=== PATIENT | male | born 1955 | race Hispanic/Latino ===

== ENCOUNTER 2018-08-17 14:40 | Emergency (ER) | payer OTHER ==
--- OUTSIDE RECORDS SUMMARY | 2018-08-17 14:42 | XMS REPORT ---
:1955 Author Organization eClinicalWorks Care Team Providers Name Role Phone Tony Klein Provider Role Unavailable Allergies, Adverse Reactions, Alerts Substance Reaction Event Type N.K.D.A. Info Not Available Non Drug Allergy Problems Problem Type Condition Code Onset Dates Condition Status Assessment Encounter for screening for lung Z12.2 Active cancer Assessment Need for pneumococcal vaccine Z23 Active Assessment Screening for colon cancer Z12.11 Active Assessment Former heavy tobacco smoker Z87.891 Active Problem Medical history non-contributory Z78.9 Active Problem GERD without esophagitis K21.9 Active Assessment GERD without esophagitis K21.9 Active Assessment Need for influenza vaccination Z23 Active Assessment Well adult on routine health check Z00.00 Active Assessment Encounter for screening for other Z11.59 Active viral diseases Medications Medication Code Code Instructions Start End Status Dosage System Date Date Pantoprazole [facility] 17887388041 40 MG Orally Active 1 tablet Sodium Once a day Clarithromycin ND 93348632883 500 MG Orally Active 1 tablet every 12 hrs Metronidazole [facility] [address]-28 500 MG Orally Active as Twice a day directed Results No Known Results Immunizations Vaccine Administration Date PNEUMAVAX August 07, 2018 Afluria August 07, 2018 Summary Purpose eClinicalWorks Submission
[2018-08-17] MEDS ORDERED: ALBUTEROL 2.5 MG/3 ML NEB SOL ONE (15:36)
[2018-08-17] MEDS ORDERED: NA CHLORIDE 0.9% 500 ML ONE (15:36)
[2018-08-17] MEDS ORDERED: IPRATROPIUM BROM 0.5MG/2.5ML ONE (15:36)
[2018-08-17 15:44] LABS: Absolute Lymphocytes (CBC) 1.4 K/uL (0.7-4.9); Absolute Monocytes 0.7 K/uL (0.1-1.3); Absolute Neutrophil 4.5 K/uL (1.8-8.0); Basophils % 0.7 % (0-1.3); Eosinophils % 2.6 % (0-4.4); Hematocrit 43.6 % (39.6-49.0); Lymphocytes % 20.7 % (15.3-44.8); MPV 9.2 fL (7.6-11.3); Monocytes % 9.7 % (3.3-12.3); RBC Red Blood Cell Count 4.83 M/uL (4.33-5.43)
[2018-08-17 15:45] LABS: Protime INR 1.23
[2018-08-17 16:00] LABS: ALT/SGPT 15 U/L (12-78); AST/SGOT 13 U/L (15-37); Albumin 3.6 g/dL (3.4-5.0); Alkaline Phosphatase 55 U/L (45-117); BUN Blood Urea Nitrogen 16 mg/dL (7-18); Bicarbonate 29 mmol/L (21-32); Bilirubin Direct 0.1 mg/dL (0-0.2); Bilirubin Total 0.6 mg/dL (0.2-1.0); Glucose Level 88 mg/dL (74-106); Magnesium 2.3 mg/dL (1.8-2.4); NT PRO-BNP 167 pg/mL (<125); Potassium 4.5 mmol/L (3.5-5.1); Protein, Total 8.4 g/dL (6.4-8.2); Sodium Level 142 mmol/L (136-145); Troponin (Emerg Dept Use Only) < 0.02 ng/mL (0.0-0.045)
--- NOTE | 2018-08-17 16:53 | RAD REPORT ---
EXAM DESCRIPTION: RAD - Chest Pa And Lat (2 Views) - 08/17/2018 4:48 pm CLINICAL HISTORY: Cough;SOB Chest pain. COMPARISON: <Comparisons> FINDINGS: Advanced COPD is identified. The heart is normal in size. No displaced fractures. IMPRESSION: Advanced COPD
--- NOTE | 2018-08-17 16:53 | RAD REPORT ---
EXAM DESCRIPTION: CT - Soft Tissue Neck W/Contr CLINICAL HISTORY: dysphagia times 3 weeks Hoarseness, neck pain COMPARISON: No comparisons TECHNIQUE All CT scans are performed using dose optimization technique as appropriate and may includ e automated exposure control or mA/KV adjustment according to patient size. FINDINGS: Supraglottic soft tissues appears irregular and thickened, particularly posteriorly. Sever al enlarged lymph nodes are present involving both the jugulodigastric chains, level III, larger on t he left measuring up to 12-13 mm and demonstrating subtle findings of internal necrosis. The vocal cords appear symmetric. Pre-epiglottic fat is preserved however both area epiglottic folds appear irregular and thickened. Suprahyoid neck shows no evidence of intrinsic mass or mass effect. Tongue base and parapharyngeal fa t triangles are symmetric. The paranasal sinuses and mastoids are clear. The upper lung gutierrez are emphysematous. The right lobe of the thyroid gland projects inferiorly and posteriorly into the upper mediastinum. IMPRESSION: Significant irregularity and thickening of the supraglottic soft tissues with evidence o f level III lymphadenopathy particularly on the left. A head and neck malignancy is suspected and dir ect visualization is advised for followup assessment.
--- NOTE | 2018-08-17 17:23 | ER ---
Nurse's Notes [facility] Name: Hugo Nichols Age: 63 yrs Sex: Male : 1955 Arrival Date: 08/17/2018 Time: 14:45 Bed 8 Private MD: Tony Klein Diagnosis: Dysphagia;Supraglottic soft tissue thickening and lymphadenopathy;Chronic obstructive pulmonary disease, unspecified Presentation: 08/17 14:59 Presenting complaint: Patient states: About three weeks ago I started with a hoarse la1 voice and difficulty breathing, I get tired easy and I am also having trouble eating and losing some weight due to the poor diet. Pt reports being a smoker >30 years 1/ ppd and quit about 6 months. Pt has seen PCP and they ordered a scan for his chest on 08/23 but patient reports symptoms are worsening. Transition of care: patient was not received from another setting of care. Onset of symptoms was August 17, 2018. Risk Assessment: Do you want to hurt yourself or someone else? Patient reports no desire to harm self or others. Initial Sepsis Screen: Does the patient meet any 2 criteria? No. Patient's initial sepsis screen is negative. Does the patient have a suspected source of infection? No. Patient's initial sepsis screen is negative. Care prior to arrival: None. 14:59 Method Of Arrival: Ambulatory la1 14:59 Acuity: HERBIE 2 la1 Historical: - Allergies: 15:01 No Known Allergies; la1 - PMHx: 15:01 None; la1 - Immunization history:: Adult Immunizations up to date. - Social history:: Smoking status: Patient/guardian denies using tobacco, the patient reports quitting approximately 0.5 years ago. - Ebola Screening: : No symptoms or risks identified at this time. Screenin:15 Abuse screen: Denies threats or abuse. Nutritional screening: No deficits noted. aa5 Tuberculosis screening: No symptoms or risk factors identified. Fall Risk None identified. Assessment: 15:15 General: Appears comfortable, Behavior is calm, cooperative. Pain: Denies pain. Neuro: aa5 Level of Consciousness is awake, alert, obeys commands, Oriented to person, place, time, situation. Cardiovascular: Heart tones S1 S2 present Rhythm is regular. Respiratory: Reports shortness of breath Airway is patent Respiratory effort is even, unlabored, Respiratory pattern is regular, symmetrical, Breath sounds are diminished bilaterally. Denies cough. GI: Abdomen is flat, Bowel sounds present X 4 quads. Abd is soft and non tender X 4 quads. Reports "I can't eat much because my throat hurts when I swallow". : No signs and/or symptoms were reported regarding the genitourinary system. EENT: Reports sore throat/irritation to throat and hoarse voice x 3 weeks ago. . Derm: Skin is pink, warm \\T\\ dry. Musculoskeletal: Range of motion: intact in all extremities. 16:11 Reassessment: Patient and/or family updated on plan of care and expected duration. Pain hj level reassessed. Patient is alert, oriented x 3, equal unlabored respirations, skin warm/dry/pink. awaiting results and POC; Patient states symptoms have improved. 16:45 Reassessment: Pt in CT . aa5 17:08 Reassessment: Patient and/or family updated on plan of care and expected duration. Pain hj level reassessed. Patient is alert, oriented x 3, equal unlabored respirations, skin warm/dry/pink. able to tolerate PO challenge;. Vital Signs: 15:01 BP 136 / 87; Pulse 98; Resp 20; Temp 98.0; Pulse Ox 98% on R/A; Weight 65.77 kg; Height la1 5 ft. 9 in. (175.26 cm); 15:48 BP 122 / 53; Pulse 70; Resp 18; Pulse Ox 100% on R/A; hj 16:02 BP 139 / 85; Pulse 64; Resp 18; Pulse Ox 100% on R/A; hj 17:02 BP 131 / 74; Pulse 70; Resp 18; Pulse Ox 100% on R/A; hj 17:37 BP 138 / 75; Pulse 75; Resp 18; Pulse Ox 100% on R/A; hj 15:01 Body Mass Index 21.41 (65.77 kg, 175.26 cm) la1 ED Course: 14:45 Patient arrived in ED. rg4 14:46 Tony Klein DO is Private Physician. rg4 15:01 Triage completed. la1 15:02 Arm band placed on left wrist. la1 15:05 Skip De Souza PA is PHCP. cp 15:05 Demetrius Herrera MD is Attending Physician. cp 15:15 Patient has correct armband on for positive identification. Placed in gown. Bed in low aa5 position. Call light in reach. Side rails up X2. Adult w/ patient. 15:20 Annamaria Nicholas, RN is Primary Nurse. aa5 15:30 Initial lab(s) drawn, by me, sent to lab. Inserted saline lock: 20 gauge in right hj antecubital area, using aseptic technique. Blood collected. 15:37 EKG done, by ED staff, reviewed by Skip HANDLEY. jb1 15:47 Forest Pulliam, RN is Primary Nurse. hj 16:37 CT completed. Patient tolerated procedure well. Patient moved back from CT. Patient vr moved to radiology. 16:38 CT Soft Tissue Neck W/contr In Process Unspecified. EDMS 16:44 XRAY Chest Pa And Lat (2 Views) In Process Unspecified. EDMS 17:20 Mayelin Swanson MD is Referral Physician. cp 17:35 No provider procedures requiring assistance completed. IV discontinued, intact, hj bleeding controlled, No redness/swelling at site. Pressure dressing applied. Administered Medications: 15:30 Drug: Albuterol 2.5 mg Route: Inhalation; hj 17:36 Follow up: Response: No adverse reaction; Wheezing diminished hj 15:30 Drug: AtroVENT Aerosol 0.5 mg Route: Inhalation; hj 17:36 Follow up: Response: No adverse reaction; Wheezing diminished hj 15:30 Drug: NS 0.9% 500 ml Route: IV; Rate: bolus; Site: right antecubital; hj 16:45 Follow up: IV Status: Completed infusion; IV Intake: 500ml hj Intake: 16:45 IV: 500ml; Total: 500ml. hj Outcome: 17:23 Discharge ordered by MD. cp 17:35 Discharged to home ambulatory, with family. hj 17:35 Condition: stable 17:35 Discharge instructions given to patient, family, Instructed on discharge instructions, follow up and referral plans. medication usage, Demonstrated understanding of instructions, follow-up care, medications, Prescriptions given X 1. 17:39 Patient left the ED. hj Signatures: Dispatcher [employer] EDMS Jonah Schulte jb1 Annamaria Nicholas, Andreia Velazquez RN, Lee, RN RN la1 Forest Pulliam RN RN hj Page, Corey PA PA cp Simone, Danyelle rg4
--- NOTE | 2018-08-17 17:23 | EDPHYS ---
Physician Documentation [facility] Name: Hugo Nichols Age: 63 yrs Sex: Male : 1955 Arrival Date: 08/17/2018 Time: 14:45 Bed 8 Private MD: Tony Klein ED Physician Demetrius Herrera HPI: 08/17 15:30 This 63 yrs old Male presents to ER via Ambulatory with complaints of cp Shortness of breath, Difficulty Swallowing, Throat Pain. 15:30 The patient presents with dysphagia, of both solids and liquids. cp 15:30 The patient describes throat pain as constant. Onset: The symptoms/episode cp began/occurred 3 week(s) ago. Severity of symptoms: in the emergency department the symptoms are unchanged, despite home interventions. Associated signs and symptoms: Pertinent positives: shortness of breath Pertinent negatives chest pain, diarrhea, fever, headache. Patient reports he has seen his PCP who ordered CT scan of chest for next week due to symptoms. Patient reports he is able to swallow liquids and soft foods. Historical: - Allergies: 15:01 No Known Allergies; la1 - PMHx: 15:01 None; la1 - Immunization history:: Adult Immunizations up to date. - Social history:: Smoking status: Patient/guardian denies using tobacco, the patient reports quitting approximately 0.5 years ago. - Ebola Screening: : No symptoms or risks identified at this time. ROS: 15:35 Constitutional: Positive for weight loss, Negative for body aches, chills, poor PO cp intake. 15:35 ENT: Positive for difficulty swallowing, sore throat, Negative for drainage from cp ear(s), ear pain, rhinorrhea, sinus congestion, difficulty handling secretions. 15:35 Cardiovascular: Negative for chest pain, edema, palpitations. 15:35 Respiratory: Positive for cough, shortness of breath, on exertion. Negative for wheezing. 15:35 Abdomen/GI: Negative for abdominal pain, nausea, vomiting, and diarrhea, black/tarry stool, rectal bleeding. 15:35 Back: Negative for pain at rest, pain with movement, radiated pain. 15:35 Skin: Negative for cellulitis, rash. 15:35 Neuro: Negative for altered mental status, dizziness, headache, weakness. 15:35 All other systems are negative. Exam: 15:45 Constitutional: The patient appears in no acute distress, alert, awake, cp non-diaphoretic, non-toxic, well developed, well nourished. 15:45 Head/Face: Normocephalic, atraumatic. Eyes: Pupils equal round and reactive to light, cp extra-ocular motions intact. Lids and lashes normal. Conjunctiva and sclera are non-icteric and not injected. Cornea within normal limits. Periorbital areas with no swelling, redness, or edema. 15:45 ENT: External ear(s): are unremarkable, Ear canal(s): are normal, clear, TM's: bulging, is not appreciated, bilaterally, dullness, bilaterally, erythema, is not appreciated, bilaterally, Nose: is normal, Mouth: Lips: moist, Oral mucosa: pink and intact, moist, Posterior pharynx: Airway: no evidence of obstruction, patent, Tonsils: are normal in appearance, Uvula: midline, swelling, is not appreciated, erythema, is not appreciated, exudate, is not appreciated, Voice: is normal. 15:45 Neck: ROM/movement: is normal, is supple, without pain, no range of motions limitations, no meningismus, no nuchal rigidity. 15:45 Chest/axilla: Inspection: normal, Palpation: is normal, no crepitus, no tenderness. 15:45 Cardiovascular: Rate: normal, Rhythm: regular, Edema: is not appreciated, JVD: is not appreciated. 15:45 Respiratory: the patient does not display signs of respiratory distress, Respirations: normal, no use of accessory muscles, no retractions, no splinting, no tachypnea, labored breathing, is not present, Breath sounds: decreased breath sounds, that are moderate, throughout, stridor, is not appreciated, wheezing: is not appreciated. 15:45 Abdomen/GI: Inspection: abdomen appears normal, Bowel sounds: active, all quadrants, Palpation: abdomen is soft and non-tender, in all quadrants. 15:45 Back: pain, is absent, ROM is normal. 15:45 Skin: cellulitis, is not appreciated, no rash present. 15:45 Neuro: Orientation: to person, place \T\ time. Mentation: is normal, Cerebellar function: is grossly normal, Motor: moves all fours, strength is normal, Sensation: is normal. Vital Signs: 15:01 BP 136 / 87; Pulse 98; Resp 20; Temp 98.0; Pulse Ox 98% on R/A; Weight 65.77 kg; Height la1 5 ft. 9 in. (175.26 cm); 15:48 BP 122 / 53; Pulse 70; Resp 18; Pulse Ox 100% on R/A; hj 16:02 BP 139 / 85; Pulse 64; Resp 18; Pulse Ox 100% on R/A; hj 17:02 BP 131 / 74; Pulse 70; Resp 18; Pulse Ox 100% on R/A; hj 17:37 BP 138 / 75; Pulse 75; Resp 18; Pulse Ox 100% on R/A; hj 15:01 Body Mass Index 21.41 (65.77 kg, 175.26 cm) la1 MDM: 15:05 Patient medically screened. cp 17:20 Data reviewed: vital signs, nurses notes, lab test result(s), EKG, radiologic studies, cp CT scan, plain films, I have discussed the patient's presentation/case with the attending Emergency Department Physician; and as a result, I will discharge patient. 17:20 Test interpretation: by ED physician or midlevel provider: ECG. Counseling: I had a cp detailed discussion with the patient and/or guardian regarding: the historical points, exam findings, and any diagnostic results supporting the discharge/admit diagnosis, lab results, radiology results, the need for outpatient follow up, for definitive care, an ENT specialist, to return to the emergency department if symptoms worsen or persist or if there are any questions or concerns that arise at home. ED course: VSS. Patient observed tolerating po fluids. Recommend soft foods and liquid diet and need for urgent ENT f/u due to CT results showing concerning for soft tissue neck malignancy. Patient acknowledged understanding. 08/17 15:22 Order name: Magnesium; Complete Time: 16:03 cp 08/17 15:22 Order name: Basic Metabolic Panel; Complete Time: 16:03 cp 08/17 15:22 Order name: CBC with Diff; Complete Time: 16:03 cp 08/17 15:22 Order name: LFT's; Complete Time: 16:03 cp 08/17 15:22 Order name: NT PRO-BNP; Complete Time: 16:03 cp 08/17 15:22 Order name: PT-INR; Complete Time: 16:03 cp 08/17 15:22 Order name: Troponin (emerg Dept Use Only); Complete Time: 16:03 08/17 15:22 Order name: Cardiac monitoring; Complete Time: 15:23 08/17 16:06 Order name: XRAY Chest Pa And Lat (2 Views); Complete Time: 17:01 08/17 17:03 Interpretation: Report reviewed. 08/17 16:06 Order name: CT Soft Tissue Neck W/contr; Complete Time: 17:01 08/17 17:03 Interpretation: Report reviewed. 08/17 15:22 Order name: EKG - Nurse/Tech; Complete Time: 15:33 08/17 15:22 Order name: IV Saline Lock; Complete Time: 15:33 08/17 15:22 Order name: Labs collected and sent; Complete Time: 15:34 08/17 15:22 Order name: O2 Per Protocol; Complete Time: 15:23 08/17 15:22 Order name: O2 Sat Monitoring; Complete Time: 15:23 08/17 17:05 Order name: PO challenge; Complete Time: 17:06 cp Administered Medications: 15:30 Drug: Albuterol 2.5 mg Route: Inhalation; hj 17:36 Follow up: Response: No adverse reaction; Wheezing diminished hj 15:30 Drug: AtroVENT Aerosol 0.5 mg Route: Inhalation; hj 17:36 Follow up: Response: No adverse reaction; Wheezing diminished hj 15:30 Drug: NS 0.9% 500 ml Route: IV; Rate: bolus; Site: right antecubital; hj 16:45 Follow up: IV Status: Completed infusion; IV Intake: 500ml hj Disposition: 17:45 Chart complete. cp 17:48 Co-signature as Attending Physician, Demetrius Herrera MD. rn Disposition: 08/17/18 17:23 Discharged to Home. Impression: Dysphagia, Supraglottic soft tissue thickening and lymphadenopathy, Chronic obstructive pulmonary disease, unspecified. - Condition is Stable. - Discharge Instructions: Chronic Obstructive Pulmonary Disease, Dysphagia, Thickening Liquids for Dysphagia Diet. - Prescriptions for Albuterol Sulfate 90 mcg/actuation - inhale 1-2 puff by INHALATION route every 4-6 hours; 1 Inhaler. - Medication Reconciliation Form, Thank You Letter, Antibiotic Education, Prescription Opioid Use form. - Follow up: Mayelin Swanson MD; When: 2 - 3 days; Reason: dysphagia and supraglottic soft tissue thickening and lymphadenopathy. Follow up: Private Physician; When: 2 - 3 days; Reason: COPD. - Problem is new. - Symptoms have improved. Signatures: Dispatcher [employer] EDDemetrius Harrington MD MD rn Attema, Lee, RN RN laForest Leung RN RN hj Skip De Souza PA PA cp Corrections: (The following items were deleted from the chart) 17:39 17:23 08/17/2018 17:23 Discharged to Home. Impression: Dysphagia; Supraglottic soft hj tissue thickening and lymphadenopathy; Chronic obstructive pulmonary disease, unspecified. Condition is Stable. Forms are Medication Reconciliation Form, Thank You Letter, Antibiotic Education, Prescription Opioid Use. Follow up: Mayelin Swanson; When: 2 - 3 days; Reason: dysphagia and supraglottic soft tissue thickening and lymphadenopathy. Follow up: Private Physician; When: 2 - 3 days; Reason: COPD. Problem is new. Symptoms have improved. cp
== END 2018-08-17 17:39 | disposition home or self-care (01) ==
LOC: ER 14:40
DX: M79.89 Other specified soft tissue disorders (principal); J44.9 Chronic obstructive pulmonary disease, unspecified
CPT/HCPCS: 36415; 70491; 71046; 80048; 80076; 83735; 83880; 84484; 85025; 85610; 96360; 99285; Q9967

== ENCOUNTER 2018-08-19 09:33 | Inpatient (IN) | payer OTHER ==
[2018-08-19 14:35] LABS: Absolute Lymphocytes (CBC) 1.2 K/uL (0.7-4.9); Absolute Monocytes 0.7 K/uL (0.1-1.3); Absolute Neutrophil 5.5 K/uL (1.8-8.0); Basophils % 0.5 % (0-1.3); Eosinophils % 1.1 % (0-4.4); Hematocrit 44.8 % (39.6-49.0); MPV 8.7 fL (7.6-11.3); RBC Red Blood Cell Count 4.99 M/uL (4.33-5.43)
[2018-08-19 14:55] LABS: ALT/SGPT 14 U/L (12-78); AST/SGOT 13 U/L (15-37); Albumin 3.7 g/dL (3.4-5.0); Alkaline Phosphatase 60 U/L (45-117); BUN Blood Urea Nitrogen 22 mg/dL (7-18); Bicarbonate 31 mmol/L (21-32); Bilirubin Total 0.6 mg/dL (0.2-1.0); Glucose Level 80 mg/dL (74-106); Magnesium 2.3 mg/dL (1.8-2.4); Phosphorus 3.3 mg/dL (2.5-4.9); Potassium 4.6 mmol/L (3.5-5.1); Prealbumin 15.5 mg/dL (20-40); Protein, Total 8.8 g/dL (6.4-8.2); Protime INR 1.28; Sodium Level 136 mmol/L (136-145)
--- OUTSIDE RECORDS SUMMARY | 2018-08-19 14:55 | XMS REPORT ---
[...] End Status Dosage System Date Date Pantoprazole [facility] 54914469128 40 MG Orally Active 1 tablet Sodium Once a day Clarithromycin ND 44552972663 500 MG Orally Active 1 tablet every 12 hrs Metronidazole [facility] [address]-07 500 MG Orally Active as Twice a day directed Results No Known Results Immunizations Vaccine Administration Date PNEUMAVAX August 07, 2018 Afluria August 07, 2018 Summary Purpose eClinicalWorks Submission
--- NOTE | 2018-08-19 15:58 | RAD REPORT ---
EXAM DESCRIPTION: RAD - Barium Swallow Modified - 08/19/2018 3:42 pm CLINICAL HISTORY: laryngeal CA, dysphagia COMPARISON: Soft Tissue Neck W/Contr dated 08/17/2018 TECHNIQUE: The patient was given liquid, semi-solid and solid forms of barium. Lateral view fluorosc opic imaging was performed in conjunction with speech pathology service. FINDINGS: Laryngeal penetration: Not cleared with thin, nectar, honey, all consistencies. High risk of aspirati on. Pharyngeal residue: vallecular (mild), pyriform (mild) Decreased epiglottic inversion, decreased aryepiglottic closure, ineffective cough. Total fluoroscopy time: 1 minutes and 26 seconds
[2018-08-19] MEDS ORDERED: NA CHLORIDE 0.9% 1,000 ML IV SCH (16:00)
--- NOTE | 2018-08-19 17:40 | P.CNS ---
Date of Consult: 08/19/18 Reason for Consult: Medical management Requesting Physician: Mayelin Swanson Chief Complaint: Laryngeal cancer/shortness of breath History of Present Illness: This is a 63-year-old male with history of laryngeal cancer admitted directly from Dr. Swanson's office for a trach placement. Patient has been having some shortness of breath for the past 2 weeks, along with laryngeal cancer. He went to Dr. Swanson's office, it was decided he would be admitted for trach placement and a PEG tube evaluation as he has not been eating well recently either. He states that he is not on any medications at home, as no other medical history, has not had any surgeries in the past. At the time of my exam , he was alert oriented x4, in no acute distress and hemodynamically stable. Allergies No Known Allergies Allergy (Verified 08/19/18 13:50) Home Medications: NK [No Home Meds] 08/19/18 - Past Medical/Surgical History Diabetic: No Past Medical History: Patient denies medical history -: Laryngeal cancer Past Surgical History: Patient denies surgical history - Social History Alcohol use: No CD- Drugs: No Caffeine use: Yes Place of Residence: Home Review of Systems 10-point ROS is otherwise unremarkable Physical Examination General: Alert, In no apparent distress, Oriented x3 HEENT: Atraumatic Respiratory: Clear to auscultation bilaterally, Normal air movement, Other ( Shortness of breath with ambulation) Cardiovascular: Regular rate/rhythm, Normal S1 S2 Capillary refill: <2 Seconds Gastrointestinal: Normal bowel sounds Musculoskeletal: No clubbing Integumentary: No rashes Neurological: Abnormal speech (Hoarse) Laboratory Data (last 24 hrs) 08/19/18 14:20: Sodium 136, Potassium 4.6, BUN 22 H, Creatinine 0.85, Glucose 80 , Phosphorus 3.3, Magnesium 2.3, Total Bilirubin 0.6, AST 13 L, ALT 14, Alkaline Phosphatase 60 08/19/18 14:20: PT 15.0 H, INR 1.28, APTT 31.5 08/19/18 14:20: WBC 7.5, Hgb 14.9, Hct 44.8, Plt Count 237 D - Problems (1) Laryngeal cancer Current Visit: Yes Status: Acute (2) Laryngeal mass Current Visit: Yes Status: Acute (3) Malnutrition Current Visit: Yes Status: Acute Qualifiers: Malnutrition type: protein-calorie malnutrition Conclusions/Impression: This is a 63-year-old male with: Laryngeal cancer Laryngeal mass Failed modified barium swallow study Malnutrition, BMI 19.4 Low pre-albumin Patient to go for trach placement tomorrow. General surgery consult for PEG tube placement Dietitian consulted, recommendations appreciated Thank you for this consult. We will continue to follow with you Time Spent Managing Pts care (In Minutes): 55
[2018-08-19] MEDS: TWOCAL HN 1,000 ML BOT FT SCH (21:00)
[2018-08-20] MEDS ORDERED: LIDOCAINE 1.5% W/EPI AMP 5 ML ONE (07:17)
[2018-08-20] MEDS ORDERED: ROCURONIUM 50 MG/5 ML VIAL IV ONE (07:32)
[2018-08-20] MEDS ORDERED: PROPOFOL 200 MG/20 ML VIAL IV ONE ×2 (07:32→08:26)
[2018-08-20] MEDS ORDERED: MIDAZOLAM HCL 2 MG/2 ML INJ ONE (07:32)
[2018-08-20] MEDS ORDERED: LIDOCAINE 1% MPF 5 ML VIAL ONE (07:32)
[2018-08-20] MEDS ORDERED: FENTANYL CITR 100 MCG/2 ML ONE (07:32)
[2018-08-20] MEDS ORDERED: SUCCINYLCHOLINE 20 MG/ML (10 ML) IV ONE (07:49)
[2018-08-20] MEDS ORDERED: Ringers Lactate 1,000 ML IV ONE (07:52)
[2018-08-20] MEDS ORDERED: NS 0.9% VIAL 10 ML ONE (08:15)
[2018-08-20] MEDS ORDERED: Phenylephrine HCl 10 MG/ML 1 ML VIAL ONE (08:15)
[2018-08-20] MEDS ORDERED: ONDANSETRON 4 MG/2 ML VIAL ONE (08:42)
[2018-08-20] MEDS ORDERED: DEXAMETHASONE 10 MG/ML VIAL ONE (08:42)
--- NOTE | 2018-08-20 08:48 | P.BOP ---
Preoperative diagnosis: airway obstruction, H&N cancer Postoperative diagnosis: same, right supraglottic cancer Primary procedure: tracheostomy Secondary procedure: DL with biopsy Specimen: R FVF, R arytenoid, post-cricoid, pretracheal tissue Findings: see photos Anesthesia: General Complications: None Implants: 6 RIG MANAGER Shiley Fluids & blood products: Crystalloid 700ml Transferred to: ICU Condition: Good
[2018-08-20] MEDS ORDERED: GLYCOPYRROLATE 0.2 MG/ML SYR ONE ×2 (08:56)
[2018-08-20] MEDS: TWOCAL HN 1,000 ML BOT FT SCH (09:00)
[2018-08-20] MEDS: D5.45NS W/KCL 20MEQ 20 MEQ/1,000 ML BAG IV SCH ×2 (10:17→20:49)
--- NOTE | 2018-08-20 11:15 | RAD REPORT ---
EXAM DESCRIPTION: Claudia Single View08/20/2018 9:40 am CLINICAL HISTORY: Tracheostomy placement COMPARISON: August 17 2018 FINDINGS: Large bulla and blebs are present within the lungs. The lungs appear clear of acute infilt rate. Heart is mildly enlarged. Tracheostomy tube is in place without evidence of a pneumothorax.
--- NOTE | 2018-08-20 17:24 | CON ---
Date of Consultation: 08/20/2018 Brief History Of Present Illness: The patient is a 63-year-old male with history of larynge al cancer, admitted from Dr. Swanson's office. He was noted to have laryngeal cancer and a need for trach placement as the patient will likely need therapy going forward. He has been having shortness of breath for approximately 2 weeks along with the laryngeal cancer. He also has had significant mal nutrition, decreased p.o. intake, and difficulty swallowing. A workup revealed that he was unable to swallow safely and needed nutritional goals, and as such, I am consulted to see the patient regardin g feeding tube placement, specifically PEG versus open procedure. He was alert during our examinatio n. I discussed this with him, although patient has a trach in place, and as such, is nonverbal, but is able to communicate with me nonverbally. Past Medical History: Negative other than laryngeal cancer. Past Surgical History: Negative. Social History: Alcohol: Denies alcohol. Recreational drug use. Allergies: NO KNOWN DRUG ALLERGIES. Medications: Medications at home: None. He had a direct laryngoscopy and tracheostomy placement today, that is 08/20/2018. Review of Systems: Other than HPI, denies. Physical Examination: Vital Signs: At the time of my examination, his BMI is 19.4, blood pressure 125/77, pulse is 88, res piratory rate 14, temperature 97.2. General: He is awake, alert, and communicative. HEENT: He has a trach in place currently. He has had surgery in this area and direct laryngoscopy, I did not perform a formal oral examination as Dr. Swanson had done so just recently. Neck: Otherwise is supple with no JVD with a tracheostomy functional in place. No evidence of bleed ing. Chest: Normal expansion and excursion. Cardiovascular: Regular rate, rhythm. Pulmonary: Clear to auscultation bilaterally. Abdomen: Soft, nontender, nondistended. No rebound. No guarding. No focal peritonitis. Extremities: No clubbing, cyanosis, or edema. Skin: Warm and dry. Laboratory Data: Reveals a white blood cell count of 7.5, hemoglobin 14.9, hematocrit of 44.8. Neut rophils are normal at 73%, platelet count is 237. His PT 15.0, INR 1.28, PTT 31.5. Sodium 136, pota ssium 4.6, chloride 100, carbon dioxide 31, BUN 22, creatinine 0.85, glucose is 80, phosphorus 3.3, m agnesium 2.3, AST 13, ALT 14, alkaline phosphatase is 60, prealbumin 15.5, that is low. He had a chest x-ray performed as well as a modified barium swallow. The modified barium swallow was performed on 08/19/2018, which is officially read as laryngeal penetration not clear with thin necta r honey all consistencies, high risk of aspiration, fragile residue vallecular mild, piriform mild, d ecreased epiglottic inversion, decreased arytenoepiglottic closure, ineffective cough. Total fluoros copy time was 1 minute 26 seconds. He additionally had a chest x-ray performed as well which was off icially read as tracheostomy tube is in place without evidence of pneumothorax. Large bullae and ble bs are present within the lungs. The lungs appear clear of acute infiltrate. Heart is mildly enlarg ed. Assessment/plan: A 63-year-old male with significant malnutrition and inability to tolerate p.o. 1.IV fluid hydration. 2.Antibiotic coverage. 3.Continue medical management per Dr. Jack as well as Dr. Swanson. 4.I have explained the risks, benefits, and alternatives of placement of a PEG tube with endoscopy, including but not limited to bleeding, infection, damage on tissue, perforation, intestines, need for further operation and procedures. The patient agrees to proceed as indicated. CHRISTIAN/MARY Voice ID: [id number] Report ID: [id number]
[2018-08-20] MEDS ORDERED: NA CHLORIDE 0.9% 500 ML IV ONE (17:39)
[2018-08-20] MEDS: MORPHINE 2 MG/ML SYR IV PRN (19:56)
--- NOTE | 2018-08-20 20:46 | P.PN ---
Date of Service: 08/20/18 CC: mild pain at trach site Interim Hx: s/p trach and DL this AM without complication. Failed MBS yesterday. Ivone trach collar this afternoon. Minimal pain, not requesting pain medications from nursing staff. Seen by Dr Babin and pending PEG placement tomorrow in OR. Nurse notes poor urine output - patient was likely dry/ dehydrated at admission as evidenced by high BUN yesterday. He was TKO yesterday prior to MBS with presumption for PO intake. After failed MBS, he was NPO overnight. He received 700ml intraop and about 700ml since getting back to ICU. Has voided small volumes (about 50ml) x 3. Denies bladder fullness or sensation of poor voiding. Exam: VSS. NAD. Alert. Aphonia due to trach. [address] with sutures and umbilical tie. Moderate bloody secretions. No bleeding from incision site. CXR: COPB/blebs/bulla. No PTX. Assessment: 1. Airway obstruction - s/p trach today emergently. Respiratory therapy and nursing for trach care teaching to patient and family. Do not remove trach sutures or umbilical tie without Dr. Swanson's permission. orders for trach care and supplies entered this evening. If doing well in the morning or after the PEG placement, will plan to downgrade to floor. Discussed with patient that trach tube will be required through XRT treatment and early recovery. Will plan for first trach change on Sunday AM prior to discharge. Plan speech path consult for PMV later this week if tolerated. 2. 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 Newly dx'd. Path pending. Plan is for definitive chemo-XRT. Discussed options with patient including local therapy in [place] or referral to [facility]. Patient opts for local therapy. Will initiate consult to be done as an out-patient. 3. Dental caries - patient has advanced dental caries and avulsed teeth. He will require full mouth extractions at least 2-3 weeks prior to starting his radiation therapy. He is advised to schedule dental appointment [facility] after discharge. List of providers will be given to the patient 4. Protein and calorie deficit malnutrition, low body weight, pharyngeal dysphagia, aspiration of food in to larynx - PEG placement scheduled. Nutrition recs in chart - will start feeds as soon as cleared by Dr Babin for PEG use. Advised patient that feeding tube will be required until he's safely able to swallow and will likely be several months - the duration of his cancer treatment and early recovery. [facility], will plan for post-treatment MBS. If passes, will have PO trial for weight maintenance. 5. Possible acute urinary retention - bolus 500ml NS. If no increase in UOP, bladder scan. If >300ml, straight cath. 6. DVT prophylaxis - FREEDOM/SCD today. Start Loveonx tomorrow. Encourage up to chair today and will start more aggressive ambulation tomorrow is tolerated 6. Discharge plan: tentative goal for discharge on Sunday - patient will need all trach/PEG supplies including suction machine, adequate comfort level with trach care and PEG feedings and planned home health visit over the weekend to be safely discharged.
--- NOTE | 2018-08-20 21:32 | PN ---
Date of Progress Note: 08/20/2018 Subjective: The patient is seen and examined. Chart reviewed and case discussed with RN. The patient went for tracheostomy this morning, which went well. Medications: List reviewed. Physical Examination: Vital Signs: Temperature 97.2, heart rate 67, blood pressure 120/66, respirations 14, O2 100% on 5 L via trach collar. General: Awake, alert, oriented, no acute distress. Ill-appearing male. CV: S1, S2. Regular rate and rhythm. Peripheral pulses present. Respiratory: Moving air well bilaterally. No wheezing or stridor. Gastrointestinal: Abdomen is soft, nontender, nondistended. Positive bowel sounds. Extremities: No clubbing, cyanosis, or edema. Neurologic: Nonfocal. Neck: Trach collar in place. Laboratory Data: Pending. Assessment And Plan: A 63-year-old male with: 1. Laryngeal cancer, recently diagnosed. 2. Laryngeal mass s/p bx 3. Malnutrition, BMI 19. The patient will receive PEG tube tomorrow by Dr. Hughes. 4. Airway obstruction status post tracheostomy. 5. GI and DVT prophylaxis addressed. Plan: We will continue IV fluids. Add pain medications IV. Anticipate PEG placement tomorrow. /MARY Voice ID: [id number] Report ID: [id number] MTDD
--- NOTE | 2018-08-21 00:45 | OP ---
Date of Procedure: 08/20/2018 Surgeon: Mayelin Swanson MD Preoperative Diagnoses: Airway obstruction, laryngeal mass, vocal cord paresis. Postoperative Diagnoses: Airway obstruction, laryngeal mass, vocal cord paresis with high concern for head and neck cancer involving the right supraglottis including the right false vocal cord, right arytenoid and interarytenoid region extending minimally onto the posterior cricoid surface and to the right true vocal fold. Procedure: tracheotomy (planned), direct laryngoscopy with telescope and biopsy Description Of Procedure: The patient was brought to the operating room. He was placed under general anesthesia via oral endotracheal tube. He was intubated using a 6.5 endotracheal tube and a glide scope. After successful intubation, the patient was positioned and the neck was cleaned with Betadine in preparation for tracheostomy. The laryngeal landmarks were easily palpated and his neck was thin. The thyroid and cricoid cartilages as well as the tracheal rings were easily palpated. He did have prominent right suprasternal pulsations. An 1.5 cm horizontal incision was made in the skin and subcutaneous tissues approximately 1 fingerbreadth below the cricoid cartilage. The skin and soft tissue were divided. The strap muscles were identified in the midline and elevated and retracted laterally. There was a small pretracheal lymph node. This was removed and sent to pathology as specimen #1. The strap muscles were then further retracted. The thyroid isthmus was encountered, elevated from the trachea, and divided. The cut edges of the isthmus were allowed to retract laterally and excellent exposure of the anterior tracheal wall was noted. Through the incision, the cricoid could be palpated superiorly and the first, second, third, and fourth tracheal rings were easily visualized and incision was made between the second and third tracheal ring. The tracheostomy was spread and the endotracheal tube was visualized after suctioning secretions. The endotracheal tube was slowly withdrawn by the Anesthesia team until the tip was barely visible through the incision. A 6 low-pressure cuffed Shiley tracheostomy tube was placed with ease into the trachea. The obturator was removed and the inner cannula was placed. The tracheostomy tube was connected to the anesthesia circuit and the cuff was inflated. Confirmation of placement was made by observing bilateral chest rise with ventilation and by return of CO2 capnography. The tracheostomy tube was then secured in a four-point fashion with silk sutures and an umbilical trach tie was placed around the neck. This portion of the procedure was concluded and the patient was repositioned for diagnostic direct laryngoscopy and biopsy with telescope. The [facility] laryngoscope was fitted with a 15-degree telescope and was used to perform a direct laryngoscopy. Prior to initiating this procedure, exam under anesthesia of the upper aerodigestive tract was performed including examination of the lip. There was very minimal leukoplakia in the inferior gingival buccal sulcus. The patient has very poor dentition with multiple mildly loose teeth, severe periodontal disease, and several avulsed teeth and will likely require full mouth extractions prior to starting radiation therapy. The floor of mouth, gingiva, and floor of tongue were otherwise unremarkable. The hard and soft palate and uvula were unremarkable. The base of the tongue and the tonsillar fossas were thoroughly palpated and there was no evidence of induration or exophytic tumor. The laryngoscope was then used for direct visualization of the base of tongue, vallecula, and epiglottis, which all appeared unremarkable. The tip of the laryngoscope was placed in the laryngeal introitus and placed in suspension. Photo documentation was obtained. The subglottis appeared clear. The left vocal cord was mildly edematous. The right vocal cord showed small amounts of tumor on the posterior aspect of the cord. The false vocal cord and arytenoid showed significant areas of exophytic tumor. The interarytenoid area was also partially involved with the tumor. The right and left piriform sinuses were smooth and pink without obvious tumor. The posterior pharyngeal wall was appeared smooth. The tip of the laryngoscope was placed into the esophageal introitus and the cricoid was elevated in order to provide better visualization of the hypopharynx. There was some concern for tumor versus edema on the post cricoid region on the anterior portion of the hypopharynx. The laryngoscope was then placed back in suspension and multiple biopsies were taken including the right false vocal cord , right arytenoid and post cricoid region. The larynx was packed with a Ray- Noam for several minutes to aid in hemostasis. After removal, there was no significant bleeding and the patient was returned to care of Anesthesia for awakening and transportation to the recovery room. Complications: None. EBL: 5ml Disposition: The patient will be transferred to the ICU for fresh trach precautions and further treatment planning. SH/MODL Voice ID: [id number] Report ID: [id number] HOLLY
[2018-08-21] MEDS: MORPHINE 2 MG/ML SYR IV PRN ×2 (01:24→21:39)
[2018-08-21] MEDS: D5.45NS W/KCL 20MEQ 20 MEQ/1,000 ML BAG IV SCH ×2 (05:15→07:45)
[2018-08-21 05:25] LABS: Absolute Lymphocytes (CBC) 0.9 K/uL (0.7-4.9); Absolute Monocytes 1.2 K/uL (0.1-1.3); Absolute Neutrophil 10.6 K/uL (1.8-8.0); Basophils % 0.1 % (0-1.3); Eosinophils % 0.1 % (0-4.4); Lymphocytes % 7.1 % (15.3-44.8); MPV 9.8 fL (7.6-11.3); Monocytes % 9.3 % (3.3-12.3); RBC Red Blood Cell Count 4.82 M/uL (4.33-5.43)
[2018-08-21 05:38] LABS: BUN Blood Urea Nitrogen 12 mg/dL (7-18); Bicarbonate 30 mmol/L (21-32); Glucose Level 133 mg/dL (74-106); Potassium 4.5 mmol/L (3.5-5.1); Sodium Level 137 mmol/L (136-145)
[2018-08-21] MEDS ORDERED: PROPOFOL 200 MG/20 ML VIAL IV ONE ×2 (09:24→09:25)
[2018-08-21] MEDS ORDERED: LIDOCAINE 1% MPF 5 ML VIAL ONE (09:25)
[2018-08-21] MEDS ORDERED: CEFAZOLIN/SWI 1gm 1 GM/10 ML SYR ONE (09:30)
[2018-08-21] MEDS ORDERED: Ringers Lactate 1,000 ML IV ONE (09:44)
--- NOTE | 2018-08-21 11:00 | ENDO RPT ---
[address], [address] EGD WITH PEG PROCEDURE REPORT EXAM DATE: 08/21/2018 PATIENT NAME: Hugo Nichols MR #: [id number] BIRTHDATE: 1955 ATTENDING: Murtaza Hughes DR STATUS: inpatient - [facility] ENGINEER: Abi Tucker RN, Rigoberto Schmidt, Adrianne Schmidt, and Nita Soliz RN INDICATIONS: The patient is a 63 yr old Male here for an EGD with PEG due to dysphagia, malignancy, and malnutrition PROCEDURE PERFORMED: EGD-PEG MEDICATIONS: Per Anesthesia. TOPICAL ANESTHETIC: none CONSENT: The patient understands the risks and benefits of the procedure and understands that these risks include, but are not limited to: sedation, allergic reaction, infection, perforation and/or bleeding. Alternative means of evaluation and treatment include, among others: physical exam, x-rays, and/or surgical intervention. The patient elects to proceed with this endoscopic procedure. DESCRIPTION OF PROCEDURE: During intra-op preparation period all mechanical medical equipment was checked for proper function. Hand hygiene and appropriate measures for infection prevention was taken. After the risks, benefits and alternatives of the procedure were thoroughly explained, Informed consent was verified, confirmed and timeout was successfully executed by the treatment team. The patient was anesthetized with topical anesthesia and the EG-[id number] ([id number]) endoscope was introduced through the mouth and advanced to the stomach body. The instrument was slowly withdrawn as the mucosa was fully examined. Mild gastritis was found in the body and the antrum of the stomach. The stomach was then inflated with air, and by a combination of transillumination and manual palpation, the site for the gastrostomy tube placement was selected and marked on the anterior abdominal wall. The skin of the anterior abdomen was surgically prepped and draped with sterile towels. Utilizing strict sterile technique, the selected site was then anesthetized with 1% xylocaine by injection into the skin and subcutaneous tissue. A 1 cm incision was made through the skin and subcutaneous tissue, and the needle/cannula assembly was then passed through the abdominal wall and through the anterior wall of the stomach, maintaining visualization with the endoscope. A snare device previously placed through the instrument channel was then opened and placed around the cannula, the needle was removed, and the insertion wire was passed through the cannula and into the stomach lumen. The snare was then loosened from the cannula, and repositioned to snare the insertion wire. The snare was then pulled up to the endoscope distal tip, and the scope was then withdrawn bringing with it the snare and insertion wire. The insertion wire was then released from the snare, and then loop-attached to the PEG PULL gastrostomy tube. Using the pull technique, the G-tube was then pulled into place by traction on the insertion wire at the abdominal wall end. The G-tube insertion site was then cleansed once again, and the external bolster was placed over the tube to secure it to the abdominal wall. A sterile dressing was then applied, and the procedure terminated. Retroflexed views revealed no abnormalities. The gastroscope was then slowly withdrawn and removed. ADVERSE EVENT: There were no complications. IMPRESSIONS: Mild gastritis was found in the body and the antrum of the stomach RECOMMENDATIONS: 1. avoid NSAIDS 2. acid suppression therapy 3. follow-up: office 2 week(s) 4. follow PEG suggestions, begin feeding in 24 hours REPEAT EXAM: Murtaza Hughes DR eSigned: Murtaza Hughes DR 08/21/2018 10:03 AM cc: CPT CODES: ICD9 CODES: PATIENT NAME: Hugo Nichols MR#: [id number]
[2018-08-21] MEDS: D5 0.45 NS 1,000 ML IV SCH ×2 (12:03→21:40)
[2018-08-21] MEDS ORDERED: KETOROLAC 30 MG/ML INJ IV ONE (12:14)
[2018-08-21] MEDS ORDERED: TWOCAL HN 1,000 ML BOT FT SCH (13:00)
[2018-08-21] MEDS ORDERED: SODIUM CHLORIDE 0.9% 10ML INJ IV PRN (13:46)
[2018-08-21] MEDS: PANTOPRAZOLE 40 MG INJ IVP SCH (14:14)
[2018-08-21] MEDS: ENOXAPARIN 40 MG/0.4 ML SQ SCH (16:38)
--- NOTE | 2018-08-21 19:58 | PN ---
Date of Progress Note: 08/21/2018 Subjective: The patient is seen and examined. Chart reviewed and case discussed with RN. The patient went down for a PEG tube placement today. Tolerated procedure well. The patient is adapting well to trach collar. No significant complaints. Medications: List reviewed. Physical Examination: Vital Signs: Temperature 97.6, heart rate 59, blood pressure 133/69, respirations 18, O2 99% on trach collar 7 L of O2. General: Awake, alert, no acute distress. Elderly male, ill-appearing, frail, cachectic, BMI 19. CV: S1, S2. Regular rate and rhythm. Peripheral pulses present. Respiratory: Moving air well bilaterally. No wheezing. Gastrointestinal: Abdomen is soft, nontender, nondistended. Positive bowel sounds. No guarding or rigidity. PEG tube in place. Extremities: No clubbing, cyanosis, or edema. Neurologic: Nonfocal. Laboratory Data: Sodium 137, potassium 4.5, chloride 102, CO2 30, BUN 12, creatinine 0.74, glucose 133, calcium 8.8. WBC 12.7, H and H 14.5 and 43, platelets 149, neutrophils 83%. Assessment And Plan: A 63-year-old male with: 1. Laryngeal cancer, stage 4, recently diagnosed. Treatment as per Dr. Swanson. The patient will need radiation therapy as an outpatient through Oncology. 2. Airway obstruction, status post tracheostomy. The patient tolerating trach well. Management as per Dr. Swanson. 3. Malnutrition with failure to thrive, BMI 19. The patient is status post PEG tube placement. PEG tube feeds to be started in [address] Hughes's input. 4. Oliguria, improved with IV fluid hydration. We will continue to monitor urine output. 5. Dental caries. GI and DVT prophylaxis with PPI and Lovenox. Plan: The patient may step down once okay with ENT and General surgery. SA/MODL Voice ID: [id number] Report ID: [id number] MTDD
[2018-08-22] MEDS: MORPHINE 2 MG/ML SYR IV PRN ×3 (03:37→17:55)
--- NOTE | 2018-08-22 07:00 | P.HP ---
Date of Service: 08/21/18
--- NOTE | 2018-08-22 07:05 | P.PN ---
Date of Service: 08/21/18 CC: mild pain at trach site Interim Hx: POD 1 trach and DL. Doing well on room air - doesn't like being on trach collar due to tubing Exam: VSS. NAD. Alert. Aphonia due to trach. [address] with sutures and umbilical tie. Moderate dried bloody secretions. The inner cannula is removed and cleaned. Patient is instructed in inner canula importance and encouraged to actively participate in his trach care and cleaning to get comfortable with the process. No bleeding from incision site. Assessment: 1. Airway obstruction - s/p trach. Respiratory therapy and nursing for trach care teaching to patient and family. Do not remove trach sutures or umbilical tie without Dr. Swanson's permission. Will plan for first trach change on Sunday AM prior to discharge. Plan speech path consult for PMV later this week if tolerated. 2. 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 Newly dx'd. Path pending. Referral to CC for RadOnc and MedOnc sent through my office. 3. Dental caries - patient has advanced dental caries and avulsed teeth. He will require full mouth extractions at least 2-3 weeks prior to starting his radiation therapy. He is advised to schedule dental appointment [facility] after discharge. List of providers will be given to the patient 4. Protein and calorie deficit malnutrition, low body weight, pharyngeal dysphagia, aspiration of food in to larynx - PEG placement scheduled for later today. Nutrition recs in chart - will start feeds as soon as cleared by Dr Babin for PEG use. 5. Low UOP improved with fluid bolus. Will montior fluid status. 6. DVT prophylaxis - FREEDOM/SCD today. Start Loveonx after PEG. Encourage up to chair today and will start more aggressive ambulation as tolerated 6. Discharge plan: tentative goal for discharge on Sunday - patient will need all trach/PEG supplies including suction machine, adequate comfort level with trach care and PEG feedings and planned home health visit over the weekend to be safely discharged.
[2018-08-22] MEDS: D5 0.45 NS 1,000 ML IV SCH ×3 (07:48→18:06)
[2018-08-22] MEDS: PANTOPRAZOLE 40 MG INJ IVP SCH (08:30)
[2018-08-22] MEDS: TWOCAL HN 1,000 ML BOT FT SCH ×3 (13:00→21:00)
[2018-08-22] MEDS: ENOXAPARIN 40 MG/0.4 ML SQ SCH (17:33)
--- NOTE | 2018-08-22 19:01 | PN ---
Date of Progress Note: 08/22/2018 Subjective: The patient is seen and examined. Chart reviewed and case discussed with RN. The patie nt denies any significant complaints, getting used to suctioning the trach. Tube feeds have not been started yet. Medications: List reviewed. Physical Examination: Vital Signs: Temperature 98.6, heart rate 70, blood pressure 131/64, respirations 18, O2 95% on room air. General: Awake, alert, oriented x3, not in any acute distress. CV: S1 and S2. Regular rate and rhythm. Peripheral pulses present. Respiratory: Moving air well bilaterally. No wheezing. Gastrointestinal: Abdomen is soft, nontender, nondistended. Positive bowel sounds. Extremities: No clubbing, cyanosis, or edema. Neurologic: Nonfocal. Laboratory Data: Labs pending. Assessment And Plan: A 63-year-old male with: 1.Laryngeal cancer, stage IV, recently diagnosed. Plan is for outpatient radiation therapy. 2.Airway obstruction, status post tracheostomy. The patient is doing well with suctioning and trach management. 3.Malnutrition with failure to thrive, BMI 19. The patient has had PEG tube placed. Tube feeds to be started today. Appreciate Dr. Hughes's input. 4.Oliguria, resolved. 5.Dental caries. 6.GI and DVT prophylaxis with PPI and Lovenox. Plan: Initiate tube feeds, likely discharge in a.m. /MARY Voice ID: [id number] Report ID: [id number]
[2018-08-23 06:15] LABS: Absolute Lymphocytes (CBC) 1.2 K/uL (0.7-4.9); Absolute Neutrophil 7.8 K/uL (1.8-8.0); Basophils % 0.6 % (0-1.3); Eosinophils % 0.9 % (0-4.4); Hematocrit 42.8 % (39.6-49.0); Lymphocytes % 11.7 % (15.3-44.8); MPV 9.2 fL (7.6-11.3); Monocytes % 9.8 % (3.3-12.3)
[2018-08-23 06:30] LABS: ALT/SGPT 16 U/L (12-78); AST/SGOT 12 U/L (15-37); Albumin 2.7 g/dL (3.4-5.0); Alkaline Phosphatase 66 U/L (45-117); BUN Blood Urea Nitrogen 10 mg/dL (7-18); Bicarbonate 29 mmol/L (21-32); Bilirubin Total 0.7 mg/dL (0.2-1.0); Glucose Level 132 mg/dL (74-106); Potassium 3.8 mmol/L (3.5-5.1); Protein, Total 7.4 g/dL (6.4-8.2); Sodium Level 137 mmol/L (136-145)
[2018-08-23] MEDS: MORPHINE 2 MG/ML SYR IV PRN ×3 (06:41→18:45)
[2018-08-23] MEDS: D5 0.45 NS 1,000 ML IV SCH ×2 (06:45→16:40)
--- NOTE | 2018-08-23 07:27 | P.PN ---
Date of Service: 08/22/18 CC: mild pain at trach site Interim Hx: POD 2 trach and DL. POD 1 PEG. Transferred to the floor. He's getting comfortable with self suctioning and learning PEG feedings Exam: VSS. NAD. Alert. Aphonia due to trach. [address] with sutures and umbilical tie. Moderate thick mucopurlent secretions. Assessment: 1. Airway obstruction - s/p trach. Respiratory therapy and nursing for trach care teaching to patient and family. Do not remove trach sutures or umbilical tie without Dr. Swanson's permission. Will plan for first trach change on Sunday AM prior to discharge. Plan speech path consult for PMV later this week if tolerated. 2. 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 Newly dx'd. Path pending. Referral to [facility] for RadOnc and MedOnc sent through my office - they have requested he [facility] to set up the appointments. I spoke with the patient, and niece in the evening for about 30 minutes regarding questions about being transferred to [facility]. We discussed that treatment can certainly be given at [facility] if desired but that at current state, we're just waiting for his home health materials and supplies to be delivered. He cannot be discharged without these materials. I spoke with JONATAN/GENE - the [employer] has the orders and we are waiting to hear back from them about delivery dates 3. Dental caries - patient has advanced dental caries and avulsed teeth. He will require full mouth extractions at least 2-3 weeks prior to starting his radiation therapy. He is advised to schedule dental appointment ANASTACIA after discharge. List of providers will be given to the patient tomorrow 4. Protein and calorie deficit malnutrition, low body weight, pharyngeal dysphagia, aspiration of food in to larynx - PEG placed and is tolerating feeds. Plan weekly pre-albumin. Patient complains of pain at PEG site - will start PT pain medications 5. DVT prophylaxis - FREEDOM/SCD today. Start Loveonx after PEG. Encourage up to chair today and will start more aggressive ambulation as tolerated 6. Discharge plan: tentative goal for discharge on Sunday - patient will need all trach/PEG supplies including suction machine, adequate comfort level with trach care and PEG feedings and planned home health visit over the weekend to be safely discharged. If supplies are not ready, discharge will likely be deleyed until Sunday
--- NOTE | 2018-08-23 07:34 | P.PN ---
Date of Service: 08/23/18 CC: mild pain at trach site Interim Hx: POD 3 trach and DL. POD 2 PEG. Exam: VSS. NAD. Alert. Aphonia due to trach. [address] with sutures and umbilical tie. Minimal secretions this morning. Assessment: 1. Airway obstruction - s/p trach. Respiratory therapy and nursing for trach care teaching to patient and family. Do not remove trach sutures or umbilical tie without Dr. Swanson's permission. Spoke with and visited Supply Chain. The 6 CFS Mercedesley trach is not available. Will see if once can be delivered. 2. 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 Newly dx'd. Path still pending this AM. Referral to [facility] for RadOnc and MedOnc sent through my office - they have requested he stop by at the [facility] at discharge to set up the appointments. After discussion with family regarding POC and goals, they have decided to stay locally for now and no longer desire transfer. 3. Dental caries - patient has advanced dental caries and avulsed teeth. He will require full mouth extractions at least 2-3 weeks prior to starting his radiation therapy. He is advised to schedule dental appointment ANASTACIA after discharge. List of providers given to the patient 4. Protein and calorie deficit malnutrition, low body weight, pharyngeal dysphagia, aspiration of food in to larynx - PEG placed and is tolerating feeds. Plan weekly pre-albumin. Patient complains of pain at PEG site - will start PT pain medications 5. DVT prophylaxis - FREEDOM/SCD today. Start Loveonx after PEG. Encourage up to chair today and will start more aggressive ambulation as tolerated 6. Discharge plan: Less likely that patient will be discharged today given lack of HH supplies and lack of CFS tube. I will need to speak to the hospitalist regard transfer to there service for the weekend due to my availability.
[2018-08-23] MEDS: PANTOPRAZOLE 40 MG INJ IVP SCH (10:13)
[2018-08-23] MEDS: CHLORHEXIDINE 0.12% 473ML BOT MM SCH ×2 (10:13→21:57)
[2018-08-23] MEDS: TWOCAL HN 1,000 ML BOT FT SCH ×4 (10:14→22:00)
[2018-08-23] MEDS ORDERED: SCOPOLAMINE HYDROBROMIDE PATCH TD ONE (15:45)
[2018-08-23] MEDS: IPRATROPIUM BROM 0.5MG/2.5ML NEB SCH ×2 (15:57→20:25)
[2018-08-23] MEDS: ACETYLCYST 20% 4 ML VIAL IH SCH ×2 (15:57→20:25)
[2018-08-23] MEDS: ALBUTEROL 2.5 MG/3 ML NEB SOL NEB SCH ×2 (15:57→20:25)
--- NOTE | 2018-08-23 16:24 | PN ---
Date of Progress Note: 08/23/2018 Subjective: The patient seen and examined. Chart reviewed and case discussed with RN and Dr. Swanson. The patient seems to be doing well, tolerating his tube feeds. He did refuse the second feed of the day. Medications: List reviewed. Physical Examination: Vital Signs: Temperature 97.2, heart rate 74, blood pressure 143/78, respirations 15, and O2 92% on room air. General: Awake, alert, oriented x3. Does not appear to be in any acute distress, frail, ill-appearing male. CV: S1 and S2. Regular rate and rhythm. Peripheral pulses present. Neck: Trach collar in place. significant secretions. Respiratory: Clear to auscultation bilaterally. No wheezing or stridor. Gastrointestinal: Abdomen is soft, nontender, nondistended. Positive bowel sounds. PEG tube in place. Extremities: No clubbing, cyanosis, or edema. Neurologic: Nonfocal. Laboratory Data: Sodium 137, potassium 3.8, chloride 103, CO2 29, BUN 10, creatinine 0.71, glucose 132, calcium 8.8, albumin 2.7. WBC 10.2, H and H 14.6 and 42.8, platelets 220. Assessment And Plan: A 63-year-old male with: 1. Laryngeal cancer, stage 4, recently diagnosed. Being ready for radiation therapy as outpatient. 2. Airway obstruction, status post tracheostomy. The patient doing well postoperatively. 3. Malnutrition with failure to thrive, BMI 19. The patient has low pre- albumin. PEG tube has been placed for nutrition. Unable to swallow safely. Awaiting on supplies for tube feeds. 4. Dental caries. 5. Gastrointestinal and deep venous thrombosis prophylaxis with PPI and Lovenox. Plan: Check CXR, obtain cultures, start on prophylactic antibiotics. Discharge once tube feeds and trach care supplies have been delivered. /MARY Voice ID: [id number] Report ID: [id number] MTDAna Cristina
[2018-08-23] MEDS: ENOXAPARIN 40 MG/0.4 ML SQ SCH (17:26)
[2018-08-23] MEDS: PIPER/TAZO/NS 3.375gm 3.375 GM/100 ML BAG IVPB SCH (17:46)
--- NOTE | 2018-08-23 18:38 | RAD REPORT ---
EXAM DESCRIPTION: RAD - Chest Pa And Lat (2 Views) - 08/23/2018 6:04 pm CLINICAL HISTORY: Cough, shortness of breath COMPARISON: August 20 TECHNIQUE: PA and lateral views of the chest were obtained. FINDINGS: The lungs are fibrotic as a baseline. Trach tube is in place similar to the comparison roland dy. Interstitial pattern is not substantially different. There are pleural scarring changes in the le ft mid chest. Cystic changes in the lateral right upper lung field also noted and stable. Heart siz e is normal and central vasculature is within normal limits. No pleural effusion or pneumothorax see n. No acute bony finding noted. No aortic abnormality. IMPRESSION: Extensive chronic pleural and parenchymal scarring changes are present as detailed. No focal mass or consolidation. Early edema and infiltrate changes can be masked by the severity of chronic disease.
[2018-08-23] MEDS ORDERED: ACETYLCYST 6,000 MG/30 ML VIAL ONE (20:28)
[2018-08-24] MEDS: MORPHINE 2 MG/ML SYR IV PRN (00:31)
[2018-08-24] MEDS: D5 0.45 NS 1,000 ML IV SCH ×2 (00:32→04:57)
[2018-08-24] MEDS: PIPER/TAZO/NS 3.375gm 3.375 GM/100 ML BAG IVPB SCH ×3 (00:33→17:59)
[2018-08-24] MEDS: ACETYLCYST 20% 4 ML VIAL IH SCH ×4 (01:50→20:00)
[2018-08-24] MEDS: ALBUTEROL 2.5 MG/3 ML NEB SOL NEB SCH ×4 (01:50→20:00)
[2018-08-24] MEDS: IPRATROPIUM BROM 0.5MG/2.5ML NEB SCH ×4 (01:50→20:00)
[2018-08-24 06:21] LABS: Absolute Lymphocytes (CBC) 0.9 K/uL (0.7-4.9); Absolute Monocytes 0.9 K/uL (0.1-1.3); Absolute Neutrophil 7.1 K/uL (1.8-8.0); Basophils % 0.2 % (0-1.3); Eosinophils % 1.2 % (0-4.4); Hematocrit 38.3 % (39.6-49.0); Lymphocytes % 9.9 % (15.3-44.8); MPV 8.6 fL (7.6-11.3); Monocytes % 9.8 % (3.3-12.3); RBC Red Blood Cell Count 4.24 M/uL (4.33-5.43)
[2018-08-24 06:41] LABS: ALT/SGPT 23 U/L (12-78); AST/SGOT 17 U/L (15-37); Albumin 2.4 g/dL (3.4-5.0); Alkaline Phosphatase 68 U/L (45-117); BUN Blood Urea Nitrogen 12 mg/dL (7-18); Bicarbonate 30 mmol/L (21-32); Bilirubin Total 0.6 mg/dL (0.2-1.0); Glucose Level 123 mg/dL (74-106); Potassium 4.3 mmol/L (3.5-5.1); Protein, Total 6.7 g/dL (6.4-8.2); Sodium Level 139 mmol/L (136-145)
[2018-08-24] MEDS ORDERED: FUROSEMIDE 40 MG/4 ML VIAL IV ONE (08:29)
[2018-08-24] MEDS: CHLORHEXIDINE 0.12% 473ML BOT MM SCH ×2 (09:00→21:39)
[2018-08-24] MEDS: TWOCAL HN 1,000 ML BOT FT SCH ×5 (09:37→21:35)
[2018-08-24] MEDS: PANTOPRAZOLE 40 MG INJ IVP SCH (09:49)
--- NOTE | 2018-08-24 15:13 | PN ---
Date of Progress Note: 08/24/2018 History: The patient seen and examined. Chart reviewed and case discussed with RN. Dr. Swanson kristin vailable for the weekend. Hospitalist service covering. The patient seems to have improved in terms of his secretions from the trach collar. Otherwise, does complain of some pain around the PEG tube insertion site. Medications: List reviewed. Physical Examination: Vital Signs: Temperature 98, heart rate 77, blood pressure 118/61, respirations 20, O2 98% on room a ir. General: Awake, alert, oriented x3. Some mild distress, frail, elderly male. BMI 19. CV: S1, S2. Regular rate and rhythm. Peripheral pulses present. Respiratory: Diminished breath sounds, some crackles heard. No wheezing or stridor. Gastrointestinal: Abdomen is soft, nontender, nondistended. Positive bowel sounds. No guarding or rigidity. Extremities: No clubbing, cyanosis, or edema. Neurologic: Nonfocal. Skin: PEG tube in place. No signs of infection. No surrounding erythema. Neck trach collar in anthony ce, reduced secretions. Laboratory Data: Sodium 136, potassium 4.3, chloride 104, CO2 30, BUN 12, creatinine 0.74, glucose 1 23, calcium 8.1, albumin 2.4. WBC 9.1, H and H 12.9 and 38.3, platelets 221, neutrophils 78%. Sputu m cultures pending. Assessment And Plan: A 63-year-old male with: 1.Laryngeal cancer, stage IV, recently diagnosed. The patient will need radiation therapy as outpat ient. 2.Airway obstruction status post tracheostomy, doing well postoperatively. Trach management as per Dr. Swanson. 3.Severe protein-calorie malnutrition. Albumin is 2.4. BMI of 19. Has been started on PEG tube fe eds. Tolerating feeds well. 4.Vascular congestion. Chest x-ray shows some fluid overload. We will discontinue IV fluids and gi ve Lasix and monitor status. The patient also started on IV antibiotics due to increased secretions and possible infiltrate on chest x-ray. We will monitor cultures. 5.Gastrointestinal, deep vein thrombosis prophylaxis with PPI and Lovenox. mop worker working on getting supplies for trach and for his tube feeds. Likely discharge once medically stable. Antibio tics have been arranged. SA/MODL Voice ID: [id number] Report ID: [id number]
[2018-08-24] MEDS: ENOXAPARIN 40 MG/0.4 ML SQ SCH (17:59)
[2018-08-25] MEDS: PIPER/TAZO/NS 3.375gm 3.375 GM/100 ML BAG IVPB SCH ×3 (00:31→16:48)
[2018-08-25] MEDS: MORPHINE 2 MG/ML SYR IV PRN ×2 (00:51→12:46)
[2018-08-25] MEDS: ALBUTEROL 2.5 MG/3 ML NEB SOL NEB SCH ×4 (01:50→19:37)
[2018-08-25] MEDS: ACETYLCYST 20% 4 ML VIAL IH SCH ×4 (01:50→19:37)
[2018-08-25] MEDS: IPRATROPIUM BROM 0.5MG/2.5ML NEB SCH ×4 (01:50→19:37)
[2018-08-25 05:36] LABS: ALT/SGPT 24 U/L (12-78); AST/SGOT 14 U/L (15-37); Albumin 2.6 g/dL (3.4-5.0); Alkaline Phosphatase 63 U/L (45-117); BUN Blood Urea Nitrogen 17 mg/dL (7-18); Bicarbonate 32 mmol/L (21-32); Bilirubin Total 0.5 mg/dL (0.2-1.0); Glucose Level 98 mg/dL (74-106); Potassium 4.2 mmol/L (3.5-5.1); Sodium Level 138 mmol/L (136-145)
[2018-08-25] MEDS: CHLORHEXIDINE 0.12% 473ML BOT MM SCH ×2 (08:21→21:58)
[2018-08-25] MEDS: PANTOPRAZOLE 40 MG INJ IVP SCH (08:22)
[2018-08-25] MEDS: TWOCAL HN 1,000 ML BOT FT SCH ×4 (08:40→21:57)
--- NOTE | 2018-08-25 14:49 | PN ---
Date of Progress Note: 08/25/2018 Subjective: The patient is seen and examined. Chart reviewed and case discussed with RN. The patie nt overall is doing well, states his tracheal secretions have decreased, tolerating tube feeds. Medications: List reviewed. Physical Examination: Vital Signs: Temperature 97.9, heart rate 70, blood pressure 121/68, respirations 20, O2 94% on room air. General: Awake, alert, oriented x3, not in any acute distress, frail, cachectic male, BMI 19. CV: S1, S2. Regular rate and rhythm. Peripheral pulses present. Respiratory: Diminished breath sounds bilaterally. No wheezing or crackles. No use of accessory mu scles. Gastrointestinal: Abdomen is soft, nontender, nondistended. Positive bowel sounds. PEG tube in anthony ce. Extremities: No clubbing, cyanosis, or edema. Neurologic: Nonfocal. Laboratory Data: Sodium 138, potassium 4.2, chloride 102, CO2 32, BUN 17, creatinine 0.79, calcium 8 .7, albumin 2.6. WBC pending. Sputum cultures growing normal respiratory khadar. Assessment: A 63-year-old male with: 1.Laryngeal cancer stage IV, recently diagnosed. Plan is for outpatient radiation therapy. 2.Airway obstruction, status post tracheostomy. Trach management as per ENT. No further complicati ons. The patient will need trach collar replaced. 3.Severe protein-calorie malnutrition. Albumin is 2.4. BMI is 19. Continue PEG tube feeds. 4.Vascular congestion. The patient was given Lasix yesterday, did have some improvement in his resp iratory status, currently on room air. Continue IV antibiotics due to possible infiltrates on x-ray. Cultures so far negative. 5.Gastrointestinal and deep vein thrombosis prophylaxis with PPI and Lovenox. Plan: Discharge once cleared by ENT and supplies have been arranged. /MARY Voice ID: [id number] Report ID: [id number]
[2018-08-25] MEDS: NA CHLORIDE 0.9% 1,000 ML IV SCH ×2 (16:00→23:26)
[2018-08-25] MEDS: ENOXAPARIN 40 MG/0.4 ML SQ SCH (16:49)
[2018-08-25] MEDS: TAMSULOSIN 0.4 MG SR CAP PO SCH (21:57)
[2018-08-26] MEDS: PIPER/TAZO/NS 3.375gm 3.375 GM/100 ML BAG IVPB SCH ×2 (00:03→08:01)
[2018-08-26] MEDS: IPRATROPIUM BROM 0.5MG/2.5ML NEB SCH ×4 (01:55→20:00)
[2018-08-26] MEDS: ALBUTEROL 2.5 MG/3 ML NEB SOL NEB SCH ×4 (01:55→20:00)
[2018-08-26] MEDS: ACETYLCYST 20% 4 ML VIAL IH SCH ×4 (01:55→20:00)
[2018-08-26 06:23] LABS: Absolute Lymphocytes (CBC) 1.1 K/uL (0.7-4.9); Absolute Monocytes 0.7 K/uL (0.1-1.3); Absolute Neutrophil 4.1 K/uL (1.8-8.0); Basophils % 0.6 % (0-1.3); Eosinophils % 3.9 % (0-4.4); Hematocrit 38.9 % (39.6-49.0); Lymphocytes % 17.2 % (15.3-44.8); MPV 8.5 fL (7.6-11.3); Monocytes % 11.8 % (3.3-12.3); RBC Red Blood Cell Count 4.31 M/uL (4.33-5.43)
[2018-08-26 06:38] LABS: ALT/SGPT 23 U/L (12-78); AST/SGOT 11 U/L (15-37); Albumin 2.6 g/dL (3.4-5.0); Alkaline Phosphatase 66 U/L (45-117); BUN Blood Urea Nitrogen 18 mg/dL (7-18); Bicarbonate 31 mmol/L (21-32); Bilirubin Total 0.4 mg/dL (0.2-1.0); Glucose Level 101 mg/dL (74-106); Potassium 4.4 mmol/L (3.5-5.1); Protein, Total 7.2 g/dL (6.4-8.2); Sodium Level 140 mmol/L (136-145)
[2018-08-26] MEDS: PANTOPRAZOLE 40 MG INJ IVP SCH (08:00)
[2018-08-26] MEDS: CHLORHEXIDINE 0.12% 473ML BOT MM SCH ×2 (08:01→20:59)
[2018-08-26] MEDS: TWOCAL HN 1,000 ML BOT FT SCH ×4 (08:01→21:00)
[2018-08-26] MEDS: MORPHINE 2 MG/ML SYR IV PRN ×2 (14:36→21:23)
[2018-08-26] MEDS: ENOXAPARIN 40 MG/0.4 ML SQ SCH (17:22)
[2018-08-26] MEDS: TAMSULOSIN 0.4 MG SR CAP PO SCH (20:59)
[2018-08-26] MEDS: NA CHLORIDE 0.9% 1,000 ML IV SCH (21:01)
[2018-08-27] MEDS: ACETYLCYST 20% 4 ML VIAL IH SCH ×4 (01:56→20:00)
[2018-08-27] MEDS: IPRATROPIUM BROM 0.5MG/2.5ML NEB SCH ×4 (01:56→20:00)
[2018-08-27] MEDS: ALBUTEROL 2.5 MG/3 ML NEB SOL NEB SCH ×4 (01:56→20:00)
[2018-08-27 05:10] LABS: Absolute Lymphocytes (CBC) 1.4 K/uL (0.7-4.9); Absolute Monocytes 0.9 K/uL (0.1-1.3); Absolute Neutrophil 4.3 K/uL (1.8-8.0); Basophils % 0.6 % (0-1.3); Eosinophils % 3.3 % (0-4.4); Hematocrit 42.1 % (39.6-49.0); Lymphocytes % 20.1 % (15.3-44.8); Monocytes % 12.7 % (3.3-12.3); RBC Red Blood Cell Count 4.58 M/uL (4.33-5.43)
--- NOTE | 2018-08-27 05:25 | DS ---
Consultants: Dr. Swanson and Dr. Hughes. Procedures: On 08/20/[address] Swanson, tracheostomy; secondary procedure, direct laryngoscopy wit h biopsy. 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 Procedures by Dr. Hughes on 08/21/2018, PEG tube placement. Admitting Diagnoses: 1.Laryngeal cancer. 2.Airway obstruction. 3.Malnutrition. Discharge Diagnoses: 1.Laryngeal mass, status post resection and tracheostomy stage MARTY. Plans for outpatient radiation therapy and chemotherapy. 2.Airway obstruction, status post tracheostomy, doing well with trach collar. 3.Severe protein-calorie malnutrition, now status post PEG tube placement. 4.Vascular congestion, improved. Hospital Course: The patient is a 63-year-old male, who was admitted by Dr. Swanson after the patien t showed up in her clinic standing stridors. The patient was recently diagnosed with a laryngeal mas s in the ER and was told to follow up. The patient was admitted to the hospital for further evaluati on and workup by Dr. Swanson and attendings were subsequently switched over to Medicine Service. The patient had a tracheostomy done as mentioned above, did well postoperatively. He was taught suction ing. He did well. Trach was also changed out by Dr. Swanson. Biopsies were also taken and laryngos copy was done. 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 The patient did not wish to go to [facility] and will be treated locally with chemotherapy and radiation therapy. The patient, otherwise, also had severe malnutrition, BMI of 19. Dr. Hughes was consulte d for PEG tube placement and the patient tolerated the procedure well. He was started on tube feeds and did well with the tube feeds and water flushes. Social workers were involved in helping and obta in necessary equipment for the patient to go home with home health. The patient did develop some vas cular congestion and had severe secretions. The patient was started on scopolamine patch, IV antibio tics. Cultures were obtained. His sputum cultures grew out normal respiratory khadar. Antibiotics w ere then discontinued. He remained afebrile, did not have any signs of sepsis. His chest x-ray show ed some edema and extensive chronic pleural and parenchymal scarring changes. The patient's IV fluid s were discontinued and he was given diuretics. The patient also had some difficulty urinating. Fran dder scan found 400 mL. He was able to urinate 1/3rd, however, required straight cath. The patient was started on Flomax. Likely has benign prostatic hyperplasia. The patient was then cleared from c onsultant's standpoint. He is ambulating well, tolerating his diet, was able to manage his trach. Valentino matthews was then discharged home with home health in a stable condition. Activity: As tolerated. Medications: As per medication reconciliation list. The patient will be on 2 calorie feeds 237 mL v ia feeding tube every 6 hours with water flushes. Followup: Follow up with primary care physician in 2-3 days. Follow up with ENT, Dr. Swanson, in 2 weeks. Follow up with Dr. Hughes in 2-4 weeks for PEG tube maintenance. Follow up with oncologist here at [facility] [place] for evaluation and treatment of laryngeal cancer. Diet: PEG tube feeds only. Physical Examination: General: Awake, alert, oriented, no acute distress. CV: S1, S2. Respiratory: Moving air well bilaterally. Abdomen: Soft, nontender, nondistended. Positive bowel sounds. PEG tube in place. Extremities: No clubbing, cyanosis, edema. Neurologic: Nonfocal. Total time spent discharging the patient was 45 minutes. /MARY Voice ID: [id number] Report ID: [id number]
[2018-08-27 05:26] LABS: ALT/SGPT 23 U/L (12-78); AST/SGOT 13 U/L (15-37); Albumin 2.7 g/dL (3.4-5.0); Alkaline Phosphatase 78 U/L (45-117); BUN Blood Urea Nitrogen 19 mg/dL (7-18); Bicarbonate 30 mmol/L (21-32); Bilirubin Total 0.3 mg/dL (0.2-1.0); Glucose Level 99 mg/dL (74-106); Potassium 4.3 mmol/L (3.5-5.1); Protein, Total 7.5 g/dL (6.4-8.2); Sodium Level 138 mmol/L (136-145)
[2018-08-27] MEDS: NA CHLORIDE 0.9% 1,000 ML IV SCH ×2 (08:00→20:26)
--- NOTE | 2018-08-27 08:12 | P.PN ---
Date of Service: 08/26/18 Interim Hx: POD 6 trach and DL. POD 5 PEG. Appreciate [facility] service care over the weekend. Getting TF and tolerating bolus feeds well. Exam: VSS. NAD. Alert. [address] with velcro tie, patient using finger occlusion and PMV independently. Minimal secretions this afternoon. Assessment: 1. Airway obstruction - s/p trach. HH set up and supplies at home. Patient will increasing confidence with care. 2. 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 Spoke with patient today regarding path report and confirmation of the cancer. He is pending definitive treatment with goal of cure. 3. Dental caries - patient has advanced dental caries and avulsed teeth. Patient requests I contact dental providers to provide background and recommendations. 4. Protein and calorie deficit malnutrition, low body weight, pharyngeal dysphagia, aspiration of food in to larynx - PEG placed and is tolerating feeds. Plan weekly pre-albumin. 5. DVT prophylaxis - FREEDOM/SCD today. Continue Loveonx after PEG. Encourage aggressive ambulation as tolerated 6. Discharge plan: Pending delivery of PEG/feeding supplies - hopefully discharge on Sunday.
[2018-08-27] MEDS: TWOCAL HN 1,000 ML BOT FT SCH ×4 (09:00→20:30)
[2018-08-27] MEDS: PANTOPRAZOLE 40 MG INJ IVP SCH (09:36)
[2018-08-27] MEDS: CHLORHEXIDINE 0.12% 473ML BOT MM SCH ×2 (09:36→20:31)
--- NOTE | 2018-08-27 11:05 | EKG ---
Test Date: 2018-08-19 Test Time: 14:36:42 Caser: BRONSON MEASUREMENT RESULTS: Intervals: Rate: 69 NH: 132 QRSD: 100 QT: 406 QTc: 435 [place]: P: 73 NH: 132 QRS: 63 T: 67 INTERPRETIVE STATEMENTS: Normal sinus rhythm Normal ECG No previous ECG available for comparison Electronically Signed On 08-20-18 05:35:24 CDT by Jaycob Patel
--- NOTE | 2018-08-27 15:29 | P.PN ---
Date of Service: 08/27/18 ADDENDUM to discharge summary: Discharge was pending PEG tube feedings set up. No acute events noted overnight. Patient remained stable, doing well. General: Awake, alert, oriented, no acute distress. CV: S1, S2. Respiratory: Moving air well bilaterally. Abdomen: Soft, nontender, nondistended. Positive bowel sounds. PEG tube in place. Extremities: No clubbing, cyanosis, edema. Neurologic: Nonfocal. Consultants: Dr. Swanson and Dr. Hughes. Procedures: On 08/20/[address] Swanson, tracheostomy; secondary procedure, direct laryngoscopy with biopsy. 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 Procedures by Dr. Hughes on 08/21/2018, PEG tube placement. Admitting Diagnoses: 1. Laryngeal cancer. 2. Airway obstruction. 3. Malnutrition. Discharge Diagnoses: 1. Laryngeal mass, status post resection and tracheostomy stage MARTY. Plans for outpatient radiation therapy and chemotherapy. 2. Airway obstruction, status post tracheostomy, doing well with trach collar. 3. Severe protein-calorie malnutrition, now status post PEG tube placement. 4. Vascular congestion, improved. Hospital Course: The patient is a 63-year-old male, who was admitted by Dr. Swanson after the patient showed up in her clinic standing stridors. The patient was recently diagnosed with a laryngeal mass in the ER and was told to follow up. The patient was admitted to the hospital for further evaluation and workup by Dr. Swanson and attendings were subsequently switched over to Medicine Service. The patient had a tracheostomy done as mentioned above, did well postoperatively. He was taught suctioning. He did well. Trach was also changed out by Dr. Swanson. Biopsies were also taken and laryngoscopy was done. 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 The patient did not wish to go to [facility] and will be treated locally with chemotherapy and radiation therapy. The patient, otherwise, also had severe malnutrition, BMI of 19. Dr. Hughes was consulted for PEG tube placement and the patient tolerated the procedure well. He was started on tube feeds and did well with the tube feeds and water flushes. Social workers were involved in helping and obtain necessary equipment for the patient to go home with home health. The patient did develop some vascular congestion and had severe secretions. The patient was started on scopolamine patch, IV antibiotics. Cultures were obtained. His sputum cultures grew out normal respiratory khadar. Antibiotics were then discontinued. He remained afebrile, did not have any signs of sepsis. His chest x-ray showed some edema and extensive chronic pleural and parenchymal scarring changes. The patient's IV fluids were discontinued and he was given diuretics. The patient also had some difficulty urinating. Bladder scan found 400 mL. He was able to urinate 1/3rd , however, required straight cath. The patient was started on Flomax. Likely has benign prostatic hyperplasia. The patient was then cleared from payroll consultant' s standpoint. He is ambulating well, tolerating his diet, was able to manage his trach. He was then discharged home with home health in a stable condition. Activity: As tolerated. Medications: As per medication reconciliation list. The patient will be on 2 calorie feeds 237 mL via feeding tube every 6 hours with water flushes. Followup: Follow up with primary care physician in 2-3 days. Follow up with ENT, Dr. Swanson, in 2 weeks. Follow up with Dr. Hughes in 2-4 weeks for PEG tube maintenance. Follow up with oncologist here at [facility] [place] for evaluation and treatment of laryngeal cancer. Diet: PEG tube feeds only. Physical Examination: General: Awake, alert, oriented, no acute distress. CV: S1, S2. Respiratory: Moving air well bilaterally. Abdomen: Soft, nontender, nondistended. Positive bowel sounds. PEG tube in place. Extremities: No clubbing, cyanosis, edema. Neurologic: Nonfocal.
[2018-08-27] MEDS: ENOXAPARIN 40 MG/0.4 ML SQ SCH (17:00)
[2018-08-27] MEDS: TAMSULOSIN 0.4 MG SR CAP PO SCH (20:30)
[2018-08-27] MEDS: MORPHINE 2 MG/ML SYR IV PRN (22:38)
[2018-08-28] MEDS: ALBUTEROL 2.5 MG/3 ML NEB SOL NEB SCH ×4 (02:00→20:00)
[2018-08-28] MEDS: IPRATROPIUM BROM 0.5MG/2.5ML NEB SCH ×4 (02:00→20:00)
[2018-08-28] MEDS: ACETYLCYST 20% 4 ML VIAL IH SCH ×4 (02:00→20:00)
[2018-08-28] MEDS: NA CHLORIDE 0.9% 1,000 ML IV SCH ×2 (04:00→17:05)
[2018-08-28] MEDS: CHLORHEXIDINE 0.12% 473ML BOT MM SCH ×2 (10:30→21:31)
[2018-08-28] MEDS: TWOCAL HN 1,000 ML BOT FT SCH ×4 (10:31→21:32)
[2018-08-28] MEDS: PANTOPRAZOLE 40 MG INJ IVP SCH (10:31)
[2018-08-28] MEDS: ENOXAPARIN 40 MG/0.4 ML SQ SCH (17:01)
[2018-08-28] MEDS: MORPHINE 2 MG/ML SYR IV PRN (17:01)
[2018-08-28] MEDS: TAMSULOSIN 0.4 MG SR CAP PO SCH (21:31)
[2018-08-29] MEDS: ACETYLCYST 20% 4 ML VIAL IH SCH ×4 (02:00→20:00)
[2018-08-29] MEDS: ALBUTEROL 2.5 MG/3 ML NEB SOL NEB SCH ×4 (02:00→20:00)
[2018-08-29] MEDS: IPRATROPIUM BROM 0.5MG/2.5ML NEB SCH ×4 (02:00→20:00)
[2018-08-29] MEDS: PANTOPRAZOLE 40 MG INJ IVP SCH (09:26)
[2018-08-29] MEDS: CHLORHEXIDINE 0.12% 473ML BOT MM SCH ×2 (09:26→21:15)
[2018-08-29] MEDS: TWOCAL HN 1,000 ML BOT FT SCH ×4 (09:27→21:00)
[2018-08-29] MEDS: MORPHINE 2 MG/ML SYR IV PRN (10:52)
[2018-08-29] MEDS: NA CHLORIDE 0.9% 1,000 ML IV SCH ×3 (10:55→21:16)
[2018-08-29] MEDS: ENOXAPARIN 40 MG/0.4 ML SQ SCH (17:00)
[2018-08-29] MEDS: HYDROCOD 2.5mg-ACETAMIN 108mg/5mL Soln FT PRN (21:15)
[2018-08-29] MEDS: TAMSULOSIN 0.4 MG SR CAP PO SCH (21:16)
--- NOTE | 2018-08-29 22:57 | P.PN ---
Subjective Date of Service: 08/29/18 Chief Complaint: Laryngeal cancer/shortness of breath Subjective: Improving Patient seen and examined at bedside. Chart reviewed and case discussed with nursing staff and Social Work. Patient doing well. No concerns or complaints this am. Physical Examination - Vital Signs Temperature: 97.8 F Blood Pressure: 113/65 Pulse: 70 Respirations: 20 Pulse Ox (%): 96 - Physical Exam General: Alert, In no apparent distress, Oriented x3 HEENT: Atraumatic, PERRLA, EOMI Neck: Supple, JVD not distended Respiratory: Clear to auscultation bilaterally, Normal air movement Cardiovascular: Regular rate/rhythm, Normal S1 S2 Gastrointestinal: Normal bowel sounds, No tenderness Musculoskeletal: No tenderness Integumentary: No rashes Neurological: Normal speech, Normal tone, Normal affect Lymphatics: No axilla or inguinal lymphadenopathy Assessment And Plan - Current Problems (Diagnosis) (1) Laryngeal cancer Current Visit: Yes Status: Acute (2) Laryngeal mass Current Visit: Yes Status: Acute (3) Malnutrition Current Visit: Yes Status: Acute Qualifiers: Malnutrition type: protein-calorie malnutrition - Plan Discharge was pending PEG tube feedings set up. No acute events noted overnight. Patient remained stable, doing well.
[2018-08-30] MEDS: IPRATROPIUM BROM 0.5MG/2.5ML NEB SCH ×3 (02:00→14:00)
[2018-08-30] MEDS: ALBUTEROL 2.5 MG/3 ML NEB SOL NEB SCH ×3 (02:00→14:00)
[2018-08-30] MEDS: ACETYLCYST 20% 4 ML VIAL IH SCH ×3 (02:00→14:00)
[2018-08-30] MEDS: PANTOPRAZOLE 40 MG INJ IVP SCH (08:44)
[2018-08-30] MEDS: HYDROCOD 2.5mg-ACETAMIN 108mg/5mL Soln FT PRN (08:44)
[2018-08-30] MEDS: TWOCAL HN 1,000 ML BOT FT SCH ×2 (08:47→13:00)
[2018-08-30] MEDS: CHLORHEXIDINE 0.12% 473ML BOT MM SCH (08:47)
[2018-08-30 11:38] LABS: Absolute Lymphocytes (CBC) 0.6 K/uL (0.7-4.9); Absolute Neutrophil 6.9 K/uL (1.8-8.0); Basophils % 0.6 % (0-1.3); Eosinophils % 0.5 % (0-4.4); Hematocrit 40.6 % (39.6-49.0); Lymphocytes % 7.5 % (15.3-44.8); RBC Red Blood Cell Count 4.52 M/uL (4.33-5.43)
[2018-08-30 11:49] LABS: BUN Blood Urea Nitrogen 15 mg/dL (7-18); Bicarbonate 30 mmol/L (21-32); Glucose Level 121 mg/dL (74-106); Potassium 4.4 mmol/L (3.5-5.1); Sodium Level 139 mmol/L (136-145)
--- NOTE | 2018-08-30 14:11 | P.DS ---
Admission Date: 08/19/18 Discharge Date: 08/30/18 Disposition: DC HOME/HOME HEALTH CARE Discharge Condition: FAIR Reason for Admission: Laryngeal cancer/shortness of breath Consultations: Dr. Swanson and Dr. Hughes. Procedures: 08/20/[address] Swanson, tracheostomy; secondary procedure, direct laryngoscopy with biopsy. 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 08/21/[address] Hughes, PEG tube placement. - Problems (1) Laryngeal cancer Current Visit: Yes Status: Acute (2) Laryngeal mass Current Visit: Yes Status: Acute (3) Malnutrition Current Visit: Yes Status: Acute Qualifiers: Malnutrition type: protein-calorie malnutrition Brief History of Present Illness: This is a 63-year-old male with history of laryngeal cancer admitted directly from Dr. Swanson's office for a trach placement. Patient has been having some shortness of breath for the past 2 weeks, along with laryngeal cancer. He went to Dr. Swanson's office, it was decided he would be admitted for trach placement and a PEG tube evaluation as he has not been eating well recently either. He states that he is not on any medications at home, as no other medical history, has not had any surgeries in the past. At the time of my exam , he was alert oriented x4, in no acute distress and hemodynamically stable. Hospital Course: The patient is a 63-year-old male, who was admitted by Dr. Swanson after the patient showed up in her clinic standing stridors. The patient was recently diagnosed with a laryngeal mass in the ER and was told to follow up. The patient was admitted to the hospital for further evaluation and workup by Dr. Swanson and attendings were subsequently switched over to Medicine Service. The patient had a tracheostomy done as mentioned above, did well postoperatively. He was taught suctioning. He did well. Trach was also changed out by Dr. Swanson. Biopsies were also taken and laryngoscopy was done. 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 The patient did not wish to go to [facility] and will be treated locally with chemotherapy and radiation therapy. The patient, otherwise, also had severe malnutrition, BMI of 19. Dr. Hughes was consulted for PEG tube placement and the patient tolerated the procedure well. He was started on tube feeds and did well with the tube feeds and water flushes. Social workers were involved in helping and obtain necessary equipment for the patient to go home with home health. The patient did develop some vascular congestion and had severe secretions. The patient was started on scopolamine patch, IV antibiotics. Cultures were obtained. His sputum cultures grew out normal respiratory khadar. Antibiotics were then discontinued. He remained afebrile, did not have any signs of sepsis. His chest x-ray showed some edema and extensive chronic pleural and parenchymal scarring changes. The patient's IV fluids were discontinued and he was given diuretics. The patient also had some difficulty urinating. Bladder scan found 400 mL. He was able to urinate 1/3rd , however, required straight cath. The patient was started on Flomax. Likely has benign prostatic hyperplasia. The patient was then cleared from leasing sales consultant' s standpoint. He is ambulating well, tolerating his diet, was able to manage his trach. He was then discharged home with home health in a stable condition. Discharge was pending and held tue to PEG tube feedings set up. Patient continued to do well and remained stable. He was discharged home once home health was set up and his tracheostomy supplies were delivered. He will follow up with ENT in 2 weeks. Follow up with : Manohar 2-4 weeks for PEG tube maintenance and he will follow up with oncology for evaluation and treatment of his laryngeal cancer. He will also follow up with dentist. He already has an appointment scheduled. Vital Signs/Physical Exam: Temp Pulse Resp BP Pulse Ox 97.9 F 72 20 133/68 98 08/30/18 12:00 08/30/18 12:00 08/30/18 12:00 08/30/18 12:08/30/18 12:00 General: Alert, In no apparent distress HEENT: Atraumatic, PERRLA, EOMI Neck: Supple, JVD not distended Respiratory: Clear to auscultation bilaterally, Normal air movement Cardiovascular: Regular rate/rhythm, Normal S1 S2 Gastrointestinal: Normal bowel sounds, No tenderness Musculoskeletal: No tenderness Integumentary: No rashes Neurological: Normal speech, Normal tone, Normal affect Lymphatics: No axilla or inguinal lymphadenopathy Laboratory Data at Discharge: WBC 8.6 K/uL (4.3-10.9) D 08/30/18 11:22 Hgb 13.6 g/dL (13.6-17.9) 08/30/18 11:22 Hct 40.6 % (39.6-49.0) 08/30/18 11:22 Plt Count 328 K/uL (152-406) D 08/30/18 11:22 PT 15.0 SECONDS (9.5-12.5) H 08/19/18 14:20 INR 1.28 08/19/18 14:20 APTT 31.5 SECONDS (24.3-36.9) 08/19/18 14:20 Sodium 139 mmol/L (136-145) 08/30/18 11:22 Potassium 4.4 mmol/L (3.5-5.1) 08/30/18 11:22 BUN 15 mg/dL (7-18) 08/30/18 11:22 Creatinine 0.76 mg/dL (0.55-1.3) 08/30/18 11:22 Glucose 121 mg/dL (74-106) H 08/30/18 11:22 Phosphorus 3.3 mg/dL (2.5-4.9) 08/19/18 14:20 Magnesium 2.3 mg/dL (1.8-2.4) 08/19/18 14:20 Total Bilirubin 0.3 mg/dL (0.2-1.0) 08/27/18 04:32 AST 13 U/L (15-37) L 08/27/18 04:32 ALT 23 U/L (12-78) 08/27/18 04:32 Alkaline Phosphatase 78 U/L (45-117) 08/27/18 04:32 Home Medications: RX: Twocal Hn 237 ml FT Q6H #30 bot 08/20/18 RX: Albuterol Inhaler [Ventolin Inhaler*] 2 puff IH Q6H PRN #1 hfa.aer.ad RX: Chlorhexidine 0.12% [Periogard*] 15 ml MM BID #1 btl 08/26/18 RX: Tamsulosin [Flomax*] 0.4 mg PO BEDTIME #30 cap 08/26/18 New Medications: RX: Albuterol Inhaler [Ventolin Inhaler*] 2 puff IH Q6H PRN #1 hfa.aer.ad PRN Reason: Shortness Of Breath RX: Chlorhexidine 0.12% [Periogard*] 15 ml MM BID #1 btl RX: Tamsulosin [Flomax*] 0.4 mg PO BEDTIME #30 cap RX: Twocal Hn 237 ml FT Q6H #30 bot Patient Discharge Instructions: f/up w PCP in 2-3 days. f/up w ENT Dr. Swanson in 2 weeks. f/up w surgeon Dr. Hughes in 2 weeks. Return to ER for worsening condition. Establish care w oncologist at [facility] Diet: PEG feeding only Activity: Ad rahel Followup: Mayelin Swanson MD [ACTIVE - CAN ADMIT] - 1 Week Murtaza Hughes MD [ACTIVE - CAN ADMIT] - 1 Week (and As needed for PEG problems/ questions) Time spent managing pt's care (in minutes): 55
== END 2018-08-30 17:16 | disposition home health service (06) | DRG 11 ==
LOC: 3RD-ICU 13:18 → 2ND 08-21 17:40
PROVIDERS: ADMIT Family Medicine; ATTEND Family Medicine
PROC: 0CBV8ZX Excision of Left Vocal Cord, Via Natural or Artificial Opening Endoscopic, Diagnostic (ICD-10-PCS; 2018-08-20)
PROC: 0B110F4 Bypass Trachea to Cutaneous with Tracheostomy Device, Open Approach (ICD-10-PCS; principal; 2018-08-20 07:30)
PROC: 0CBM8ZX Excision of Pharynx, Via Natural or Artificial Opening Endoscopic, Diagnostic (ICD-10-PCS; 2018-08-20 07:30)
PROC: 0DH63UZ Insertion of Feeding Device into Stomach, Percutaneous Approach (ICD-10-PCS; 2018-08-21)
PROC: 3E0G76Z Introduction of Nutritional Substance into Upper GI, Via Natural or Artificial Opening (ICD-10-PCS; 2018-08-22)
DX: C32.1 Malignant neoplasm of supraglottis (principal); E43 Unspecified severe protein-calorie malnutrition; C77.0 Secondary and unspecified malignant neoplasm of lymph nodes of head, face and neck; Z68.1 Body mass index [BMI] 19.9 or less, adult; C13.1 Malignant neoplasm of aryepiglottic fold, hypopharyngeal aspect; Z87.891 Personal history of nicotine dependence; J44.9 Chronic obstructive pulmonary disease, unspecified; C32.0 Malignant neoplasm of glottis; J98.8 Other specified respiratory disorders; J38.5 Laryngeal spasm; K29.60 Other gastritis without bleeding; E86.0 Dehydration; K02.9 Dental caries, unspecified; R62.7 Adult failure to thrive; R34 Anuria and oliguria; R13.13 Dysphagia, pharyngeal phase; R49.1 Aphonia; K05.6 Periodontal disease, unspecified; I87.8 Other specified disorders of veins; N40.1 Benign prostatic hyperplasia with lower urinary tract symptoms; R33.8 Other retention of urine
CPT/HCPCS: 36415; 71045; 71046; 74230; 80048; 80053; 83735; 84100; 84134; 84145; 85025; 85610; 85730; 87070; 87205; 88305; 92507; 92523; 92526; 92611; 93005; 94640; 97116; 97162; 97530; C9113; J0330; J0690; J1100; J1650; J1940; J2001; J2250; J2270; J2370; J2405; J2543; J2704; J3010; J7030

== ENCOUNTER 2018-11-20 08:32 | Emergency (ER) | payer OTHER ==
--- OUTSIDE RECORDS SUMMARY | 2018-11-20 08:36 | XMS REPORT ---
:1955 Author Organization eClinicalWorks Care Team Providers Name Role Phone Murtaza Hughes Provider Role Unavailable Allergies, Adverse Reactions, Alerts Substance Reaction Event Type N.K.D.A. Info Not Available Non Drug Allergy Problems Problem Type Condition Code Onset Dates Condition Status Problem Medical history non-contributory Z78.9 Active Problem GERD without esophagitis K21.9 Active Assessment Follow up Z09 Active Medications Medication Code Code Instructions Start End Status Dosage System Date Date Clarithromycin [facility] 80758179001 500 MG Orally Active 1 tablet every 12 hrs Metronidazole [facility] 77576613351 500 MG Orally Active as Twice a day directed Albuterol Sulfate [facility] 79107590584 108 (90 Base) Active as HFA MCG/ACT directed Inhalation TwoCal HN [facility] 35008526865 - Orally Active as directed Pantoprazole [facility] 68959432332 40 MG Orally Active 1 tablet Sodium Once a day Tamsulosin HCl [facility] 26309162000 0.4 MG Orally Active 1 capsule Once a day Results No Known Results Summary Purpose eClinicalWorks Submission
--- OUTSIDE RECORDS SUMMARY | 2018-11-20 08:36 | XMS REPORT ---
[...] End Status Dosage System Date Date Pantoprazole [facility] 85437744683 40 MG Orally Active 1 tablet Sodium Once a day Clarithromycin ND 05776582935 500 MG Orally Active 1 tablet every 12 hrs Metronidazole [facility] [address]-54 500 MG Orally Active as Twice a day directed Results No Known Results Immunizations Vaccine Administration Date PNEUMAVAX August 07, 2018 Afluria August 07, 2018 Summary Purpose eClinicalWorks Submission
[2018-11-20] MEDS ORDERED: LIDOCAINE VISCOUS 2% SOLN 15 ML UDC ONE (09:01)
--- NOTE | 2018-11-20 09:49 | EDPHYS ---
Physician Documentation [facility] Name: Hugo Nichols Age: 63 yrs Sex: Male : 1955 Arrival Date: 11/20/2018 Time: 08:38 Bed 2 Private MD: ED Physician Demetrius Herrera HPI: 11/20 08:41 This 63 yrs old Male presents to ER via Unassigned with complaints of jr8 Breathing Difficulty. 08:41 Onset: The symptoms/episode began/occurred acutely, today. Duration: The symptoms are jr8 continuous. The patient's shortness of breath has no apparent modifying factors. Associated signs and symptoms: The patient has no apparent associated signs or symptoms. Severity of symptoms: At their worst the symptoms were mild in the emergency department the symptoms are unchanged. It is unknown whether or not the patient has had similar symptoms in the past. The patient has not recently seen a physician. Patient currently undergoing chemo and Radiation therapy for cancer. Has tracheostomy and gastrostomy tube in place. Stated that he was going to clean and change out Shiley the AM but feels mucous plug in there that will not come out . Historical: - Allergies: 08:45 No Known Allergies; tr5 - Home Meds: 08:45 None [Active]; tr5 - PMHx: 08:45 Cancer; tr5 - Immunization history:: Adult Immunizations up to date. - Social history:: Smoking status: Patient/guardian denies using tobacco, the patient reports quitting approximately 1 years ago. - Ebola Screening: : No symptoms or risks identified at this time. ROS: 08:41 Eyes: Negative for injury, pain, redness, and discharge, ENT: Negative for injury, jr8 pain, and discharge, Neck: Negative for injury, pain, and swelling, Cardiovascular: Negative for chest pain, palpitations, and edema, Abdomen/GI: Negative for abdominal pain, nausea, vomiting, diarrhea, and constipation, Back: Negative for injury and pain, MS/Extremity: Negative for injury and deformity, Skin: Negative for injury, rash, and discoloration, Neuro: Negative for headache, weakness, numbness, tingling, and seizure. 08:41 Respiratory: Positive for shortness of breath. Exam: 08:41 Eyes: Pupils equal round and reactive to light, extra-ocular motions intact. Lids and jr8 lashes normal. Conjunctiva and sclera are non-icteric and not injected. Cornea within normal limits. Periorbital areas with no swelling, redness, or edema. ENT: Nares patent. No nasal discharge, no septal abnormalities noted. Tympanic membranes are normal and external auditory canals are clear. Oropharynx with no redness, swelling, or masses, exudates, or evidence of obstruction, uvula midline. Mucous membranes moist. Cardiovascular: Regular rate and rhythm with a normal S1 and S2. No gallops, murmurs, or rubs. Normal PMI, no JVD. No pulse deficits. Abdomen/GI: Soft, non-tender, with normal bowel sounds. No distension or tympany. No guarding or rebound. No evidence of tenderness throughout. Back: No spinal tenderness. No costovertebral tenderness. Full range of motion. Skin: Warm, dry with normal turgor. Normal color with no rashes, no lesions, and no evidence of cellulitis. MS/ Extremity: Pulses equal, no cyanosis. Neurovascular intact. Full, normal range of motion. Neuro: Awake and alert, GCS 15, oriented to person, place, time, and situation. Cranial nerves II-XII grossly intact. Motor strength 5/5 in all extremities. Sensory grossly intact. Cerebellar exam normal. Normal gait. 08:41 Neck: External neck: redness and ulceration around neck line noted from radiation treatment . 08:41 Respiratory: the patient does not display signs of respiratory distress, Respirations: labored breathing, that is mild, Breath sounds: wheezing: expiratory that is mild, is heard diffusely. Vital Signs: 08:35 BP 157 / 76; Pulse 76; Resp 18; Pulse Ox 98% on R/A; Weight 58.06 kg (R); Height 5 ft. tr5 9 in. (175.26 cm); 08:35 Body Mass Index 18.90 (58.06 kg, 175.26 cm) tr5 MDM: 08:40 Patient medically screened. jr8 09:47 Data reviewed: vital signs, nurses notes, and as a result, I will discharge patient. jr8 Data interpreted: Pulse oximetry: on room air is 98 %. Interpretation: normal. Counseling: I had a detailed discussion with the patient and/or guardian regarding: the historical points, exam findings, and any diagnostic results supporting the discharge/admit diagnosis, the need for outpatient follow up, a family practitioner, to return to the emergency department if symptoms worsen or persist or if there are any questions or concerns that arise at home. Response to treatment: the patient's symptoms have resolved after treatment. ED course: After thorough cleaning around neck and replacing Shiley along with suctioning. Patient now back to baseline and without acute breathing issues. Will d/c home to f/u with PCP . Administered Medications: No medications were administered Disposition: 15:48 Co-signature as Attending Physician, Demetrius Herrera MD. rn Disposition: 11/20/18 09:49 Discharged to Home. Impression: Tracheostomy complications. - Condition is Stable. - Discharge Instructions: How to Clean a Tracheostomy and Replace Tracheostomy Ties, Adult. - Medication Reconciliation Form, Thank You Letter, Antibiotic Education, Prescription Opioid Use form. - Follow up: Private Physician; When: 2 - 3 days; Reason: Recheck today's complaints, Continuance of care, Re-evaluation by your physician. - Problem is new. - Symptoms have improved. Signatures: Mayelin Oviedo RN RN Jd Frey RN RN Demetrius Herrera MD MD rn Roszak, Josh, PA PA 8 Andrei Martinez RN RN tr5 Corrections: (The following items were deleted from the chart) 10:00 09:49 11/20/2018 09:49 Discharged to Home. Impression: Tracheostomy complications. sg Condition is Stable. Forms are Medication Reconciliation Form, Thank You Letter, Antibiotic Education, Prescription Opioid Use. Follow up: Private Physician; When: 2 - 3 days; Reason: Recheck today's complaints, Continuance of care, Re-evaluation by your physician. Problem is new. Symptoms have improved. jr8 10: 10:13 Ebola Screening: No symptoms or risks identified at this time tr5 10: 10:13 Social history: Smoking status: Patient/guardian denies using tobacco, the tr5 patient reports quitting approximately 1 years ago, 10:13 Immunization history: Adult Immunizations up to date, [facility]
--- NOTE | 2018-11-20 09:49 | ER ---
Nurse's Notes [facility] Name: Hugo Nichols Age: 63 yrs Sex: Male : 1955 Arrival Date: 11/20/2018 Time: 08:38 Bed 2 Private MD: Diagnosis: Tracheostomy complications Presentation: 11/20 08:35 Presenting complaint: EMS states: Pt was experiencing shortness of breath with tr5 difficulty breathing. Pt states he believes there is a blood clot "stuck" in his airway. Pt's BP in route was 148/76, pulse 103 and 02 was 96%on RA. Transition of care: patient was not received from another setting of care. Onset of symptoms was November 20, 2018. Risk Assessment: Do you want to hurt yourself or someone else? Patient reports no desire to harm self or others. Initial Sepsis Screen: Does the patient meet any 2 criteria? No. Patient's initial sepsis screen is negative. Does the patient have a suspected source of infection? No. Patient's initial sepsis screen is negative. Care prior to arrival: Medication(s) given: Albuterol Neb x 1, Med neb given. Oxygen administered. 08:35 Method Of Arrival: EMS: [facility] tr5 08:35 Acuity: HERBIE 2 tr5 Triage Assessment: 08:40 General: Appears uncomfortable, Behavior is calm, cooperative. Pain: Denies pain. EENT: tr5 No signs and/or symptoms were reported regarding the EENT system. Neuro: Level of Consciousness is awake, alert, obeys commands, Oriented to person, place, time, Data Integration Developer are equal bilaterally Moves all extremities. Cardiovascular: Heart tones present Bruits absent Capillary refill < 3 seconds Pulses are all present. Edema is absent. Respiratory: Reports shortness of breath at rest labored breathing since Pt reports waking up with difficulty breathing and shortness of breath. Airway is patent Trachea midline Respiratory effort is even, labored, Respiratory pattern is symmetrical, Sputum is thick, yellow Onset: The symptoms/episode began/occurred the patient has moderate shortness of breath. GI: No signs and/or symptoms were reported involving the gastrointestinal system. : No signs and/or symptoms were reported regarding the genitourinary system. Derm: Skin is intact, Skin is dry. Musculoskeletal: Capillary refill < 3 seconds, Range of motion: intact in all extremities. Historical: - Allergies: 08:45 No Known Allergies; tr5 - Home Meds: 08:45 None [Active]; tr5 - PMHx: 08:45 Cancer; tr5 - Immunization history:: Adult Immunizations up to date. - Social history:: Smoking status: Patient/guardian denies using tobacco, the patient reports quitting approximately 1 years ago. - Ebola Screening: : No symptoms or risks identified at this time. Screenin:35 Abuse screen: Denies threats or abuse. Denies injuries from another. Nutritional sv screening: No deficits noted. Tuberculosis screening: No symptoms or risk factors identified. Fall Risk None identified. Assessment: 09:15 Reassessment: Patient appears in no apparent distress at this time. Patient and/or tr5 family updated on plan of care and expected duration. Pain level reassessed. Pain: Denies pain. Cardiovascular: Rhythm is regular. Respiratory: Airway via trache Respiratory effort is even. 09:40 Reassessment: Patient and/or family updated on plan of care and expected duration. Pain tr5 level reassessed. Patient states feeling better. Patient states symptoms have improved. Respiratory: Breath sounds are clear bilaterally. Vital Signs: 08:35 BP 157 / 76; Pulse 76; Resp 18; Pulse Ox 98% on R/A; Weight 58.06 kg (R); Height 5 ft. tr5 9 in. (175.26 cm); 08:35 Body Mass Index 18.90 (58.06 kg, 175.26 cm) tr5 ED Course: 08:35 Patient has correct armband on for positive identification. Placed in gown. Bed in low sv position. Call light in reach. Side rails up X2. Pulse ox on. NIBP on. 08:38 Patient arrived in ED. tr5 08:40 Haresh Sylvester PA is PHCP. jr8 08:40 Demterius Herrera MD is Attending Physician. jr8 08:40 Arm band placed on right wrist. tr5 08:43 Triage completed. tr5 08:53 Andrei Martinez, WESLEY is Primary Nurse. sv 09:55 No provider procedures requiring assistance completed. Patient did not have IV access sg during this emergency room visit. Administered Medications: No medications were administered Outcome: 09:49 Discharge ordered by . jr8 09:55 Discharged to home ambulatory, with friend. sg 09:55 Condition: good 09:55 Discharge instructions given to patient, Instructed on discharge instructions, follow up and referral plans. safety practices, Demonstrated understanding of instructions, follow-up care, Prescriptions given X none 10:00 Patient left the ED. sg 10:02 Condition: instructed on Trach care at home, wound care (clean/dry), where to buy sg medical supplies Signatures: Mayelin Oviedo RN RN Jd Frey RN RN Haresh Sylvester PA PA jr8 Andrei Martinez RN RN tr5 Corrections: (The following items were deleted from the chart) : 10:14 General: Appears uncomfortable, Behavior is calm, cooperative, tr5 tr5 : 10:14 Pain: Denies pain. tr5 tr5 : 10:14 EENT: No signs and/or symptoms were reported regarding the EENT system. tr5 tr5 10: 10:14 Neuro: Level of Consciousness is awake, alert, obeys commands, Oriented to tr5 person, place, time, Data Integration Developer are equal bilaterally Moves all extremities. tr5 : 10:14 Cardiovascular: Heart tones present Bruits absent Capillary refill < 3 seconds tr5 Pulses are all present. Edema is absent. tr5 : 10:14 Respiratory: Reports shortness of breath at rest labored breathing since Pt tr5 reports waking up with difficulty breathing and shortness of breath. Airway is patent Trachea midline Respiratory effort is even, labored, Respiratory pattern is symmetrical, Sputum is thick, yellow Onset: The symptoms/episode began/occurred the patient has moderate shortness of breath tr5 : 10:14 GI: No signs and/or symptoms were reported involving the gastrointestinal system. tr5 tr5 : 10:14 : No signs and/or symptoms were reported regarding the genitourinary system. tr5tr5 10: 10:14 Derm: Skin is intact, Skin is dry, tr5 tr5 10: 10:14 Musculoskeletal: Capillary refill < 3 seconds, Range of motion: intact in all tr5 extremities, tr5 : 10:13 Ebola Screening: No symptoms or risks identified at this time tr5 : 10:13 Social history: Smoking status: Patient/guardian denies using tobacco, the tr5 patient reports quitting approximately 1 years ago, 10:22 10:13 Immunization history: Adult Immunizations up to date, sv tr5
== END 2018-11-20 10:00 | disposition home or self-care (01) ==
LOC: ER 08:32
DX: J95.03 Malfunction of tracheostomy stoma (principal); Z85.9 Personal history of malignant neoplasm, unspecified
CPT/HCPCS: 99283

== ENCOUNTER 2018-11-24 23:20 | Emergency (ER) | payer OTHER ==
--- OUTSIDE RECORDS SUMMARY | 2018-11-24 23:23 | XMS REPORT ---
[...] End Status Dosage System Date Date Clarithromycin [facility] 21383830445 500 MG Orally Active 1 tablet every 12 hrs Metronidazole [facility] 17511118750 500 MG Orally Active as Twice a day directed Albuterol Sulfate [facility] 68846736728 108 (90 Base) Active as HFA MCG/ACT directed Inhalation TwoCal HN [facility] 42714849871 - Orally Active as directed Pantoprazole [facility] 10862410630 40 MG Orally Active 1 tablet Sodium Once a day Tamsulosin HCl [facility] 12635866977 0.4 MG Orally Active 1 capsule Once a day Results No Known Results Summary Purpose eClinicalWorks Submission
--- OUTSIDE RECORDS SUMMARY | 2018-11-24 23:23 | XMS REPORT ---
[...] End Status Dosage System Date Date Pantoprazole [facility] 52475905724 40 MG Orally Active 1 tablet Sodium Once a day Clarithromycin ND 65779153029 500 MG Orally Active 1 tablet every 12 hrs Metronidazole [facility] [address]-56 500 MG Orally Active as Twice a day directed Results No Known Results Immunizations Vaccine Administration Date PNEUMAVAX August 07, 2018 Afluria August 07, 2018 Summary Purpose eClinicalWorks Submission
[2018-11-25] MEDS ORDERED: LEVALBUTEROL 1.25 MG/3 ML NEB ONE (00:18)
[2018-11-25 01:12] LABS: Absolute Lymphocytes (CBC) 0.2 K/uL (0.7-4.9); Eosinophils % 0.3 % (0-4.4); Hematocrit 37.6 % (39.6-49.0); Lymphocytes % 4.9 % (15.3-44.8); MPV 8.5 fL (7.6-11.3); Protime INR 1.04; RBC Red Blood Cell Count 4.15 M/uL (4.33-5.43)
[2018-11-25 01:25] LABS: ALT/SGPT 37 U/L (12-78); AST/SGOT 14 U/L (15-37); Albumin 3.1 g/dL (3.4-5.0); Alkaline Phosphatase 98 U/L (45-117); BUN Blood Urea Nitrogen 21 mg/dL (7-18); Bicarbonate 30 mmol/L (21-32); Bilirubin Direct < 0.1 mg/dL (0-0.2); Bilirubin Total 0.2 mg/dL (0.2-1.0); Glucose Level 105 mg/dL (74-106); Lipase 92 U/L (73-393); Magnesium 2.3 mg/dL (1.8-2.4); NT PRO-BNP 109 pg/mL (<125); Potassium 4.3 mmol/L (3.5-5.1); Protein, Total 7.1 g/dL (6.4-8.2); Sodium Level 139 mmol/L (136-145); Troponin (Emerg Dept Use Only) < 0.02 ng/mL (0.0-0.045)
--- NOTE | 2018-11-25 01:42 | EDPHYS ---
Physician Documentation [facility] Name: Hugo Nichols Age: 63 yrs Sex: Male : 1955 Arrival Date: 11/24/2018 Time: 23:21 Bed 18 Private MD: ED Physician Jordan Fernando HPI: 11/25 05:17 This 63 yrs old Male presents to ER via Ambulatory with complaints of Foreign wa Body In Throat, Difficulty Swallowing. 05:17 The patient presents with a foreign body sensation in the throat, states cannot clear wa his trach. believes something is stuck in there. The patient describes throat pain as denies pain. states worsening secretions. from trach. coughing. feels chunk of "stuff" come at certain times. . Onset: The symptoms/episode began/occurred just prior to arrival. Severity of symptoms: At their worst the symptoms were moderate, in the emergency department the symptoms are actually worse, moderately. Modifying factors: The symptoms are alleviated by nothing, the symptoms are aggravated by nothing. Associated signs and symptoms: Pertinent positives: cough, Pertinent negatives chest pain, shortness of breath. The patient has not experienced similar symptoms in the past. The patient has not recently seen a physician. trach placed by Dr. Swanson. Historical: - Allergies: 11/24 23:28 No Known Allergies; la1 - PMHx: 23:28 Cancer; Laryngeal; la1 - Immunization history:: Adult Immunizations up to date. - Social history:: Smoking status: Patient/guardian denies using tobacco. - Ebola Screening: : No symptoms or risks identified at this time. - Family history:: not pertinent. - Hospitalizations: : No recent hospitalization is reported. ROS: 11/25 05:20 Constitutional: Negative for fever, chills, and weight loss, Eyes: Negative for injury, wa pain, redness, and discharge, Cardiovascular: Negative for chest pain, palpitations, and edema, Respiratory: Negative for shortness of breath, cough, wheezing, and pleuritic chest pain, Abdomen/GI: Negative for abdominal pain, nausea, vomiting, diarrhea, and constipation, Back: Negative for injury and pain, : Negative for injury, bleeding, discharge, and swelling, MS/Extremity: Negative for injury and deformity, Skin: Negative for injury, rash, and discoloration, Neuro: Negative for headache, weakness, numbness, tingling, and seizure, Psych: Negative for depression, anxiety, suicide ideation, homicidal ideation, and hallucinations. ENT: Positive for difficulty handling secretions, cough. excessive mucous blocking airway. Neck: Positive for trach. All other systems are negative. Exam: 05:45 Constitutional: This is a well developed, well nourished patient who is awake, alert, wa and in no acute distress. Head/Face: Normocephalic, atraumatic. Eyes: Pupils equal round and reactive to light, extra-ocular motions intact. Lids and lashes normal. Conjunctiva and sclera are non-icteric and not injected. Cornea within normal limits. Periorbital areas with no swelling, redness, or edema. Chest/axilla: Normal chest wall appearance and motion. Nontender with no deformity. No lesions are appreciated. Cardiovascular: Regular rate and rhythm with a normal S1 and S2. No gallops, murmurs, or rubs. Normal PMI, no JVD. No pulse deficits. Abdomen/GI: Soft, non-tender, with normal bowel sounds. No distension or tympany. No guarding or rebound. No evidence of tenderness throughout. Back: No spinal tenderness. No costovertebral tenderness. Full range of motion. Skin: Warm, dry with normal turgor. Normal color with no rashes, no lesions, and no evidence of cellulitis. MS/ Extremity: Pulses equal, no cyanosis. Neurovascular intact. Full, normal range of motion. Neuro: Awake and alert, GCS 15, oriented to person, place, time, and situation. Cranial nerves II-XII grossly intact. Motor strength 5/5 in all extremities. Sensory grossly intact. Cerebellar exam normal. Normal gait. Psych: Awake, alert, with orientation to person, place and time. Behavior, mood, and affect are within normal limits. 05:45 ENT: Posterior pharynx: is normal. 05:45 Neck: midline trach noted with persistent cough spells. Vital Signs: 11/24 23:30 BP 110 / 74; Pulse 96; Resp 18; Temp 98.6; Pulse Ox 98% on R/A; Weight 58.51 kg; la1 11/25 00:00 BP 119 / 69; Pulse 77; Resp 20 S; Pulse Ox 100% ; cc3 01:30 BP 109 / 71; Pulse 72; Resp 15 S; Pulse Ox 100% ; cc3 02:00 BP 117 / 73; Pulse 73; Resp 14 S; Pulse Ox 98% on R/A; cc3 00:00 FiO2 35% humidified oxygen on trach mask cc3 01:30 trach mask humidified oxygen FiO2 35% cc3 MDM: 11/24 23:36 Patient medically screened. id 11/25 05:46 Differential diagnosis: suspect mucous vs tissue plug. will get RT to suction. will wa give a neb via trach collar. will check CXR and labs and reassess. Data reviewed: vital signs, nurses notes. Test interpretation: by ED physician or midlevel provider: labs noted wnl. CXR clear. . Response to treatment: the patient's symptoms have resolved after treatment. ED course: symptoms resolved after a piece of tissue was removed from trach. pt with immediate relief. d/c'd pt after a period of observation. 11/24 23:52 Order name: BMP; Complete Time: 11/24 23:52 Order name: CBC with Diff; Complete Time: 11/24 23:52 Order name: Hepatic Function; Complete Time: 11/24 23:52 Order name: Lipase; Complete Time: 11/24 23:52 Order name: Magnesium; Complete Time: 11/24 23:52 Order name: NT PRO-BNP; Complete Time: 11/24 23:52 Order name: PT-INR; Complete Time: 11/24 23:52 Order name: Troponin (emerg Dept Use Only); Complete Time: 11/24 23:52 Order name: EKG; Complete Time: 23:54 11/24 23:52 Order name: Cardiac monitoring; Complete Time: 00:09 11/24 23:52 Order name: EKG - Nurse/Tech; Complete Time: 00:01 11/24 23:52 Order name: IV Saline Lock; Complete Time: 00:40 11/25 01:14 Order name: Chest Single View XRAY 11/24 23:52 Order name: Labs collected and sent; Complete Time: 00:41 11/24 23:52 Order name: O2 Per Protocol; Complete Time: 23:53 11/24 23:52 Order name: O2 Sat Monitoring; Complete Time: 23:53 id 11/25 00:00 Order name: Suction: RT deep suction through trach. neb through trach collar; Complete wa Time: 00:09 Administered Medications: 00:00 Drug: Xopenex 1.25 mg Route: Inhalation; cc3 00:20 Follow up: Response: No adverse reaction; Marked relief of symptoms cc3 Disposition: 11/25/18 01:41 Discharged to Home. Impression: acute mucous plug, cough, shortness of breath. - Condition is Stable. - Discharge Instructions: Shortness of Breath, [id number], Cough, Adult, [id number]. - Medication Reconciliation Form, Thank You Letter, Antibiotic Education, Prescription Opioid Use form. - Follow up: Mayelin Swanson MD; When: 1 - 2 days; Reason: Recheck today's complaints. - Problem is new. - Symptoms have improved. - Notes: follow up with the doctor who placed your trach for further evaluation. return here for any concerning symptoms you may have Signatures: Dispatcher [employer] EDDC Stanton Perales RN RN la1 Jordan Fernando MD MD id Antoinette Ramirez cc3 Corrections: (The following items were deleted from the chart) 02:11 01:41 11/25/2018 01:41 Discharged to Home. Impression: acute mucous plug; cough; cc3 shortness of breath. Condition is Stable. Forms are Medication Reconciliation Form, Thank You Letter, Antibiotic Education, Prescription Opioid Use. Follow up: Mayelin Swanson; When: 1 - 2 days; Reason: Recheck today's complaints. Problem is new. Symptoms have improved. wa
--- NOTE | 2018-11-25 01:42 | ER ---
Nurse's Notes [facility] Name: Hugo Nichols Age: 63 yrs Sex: Male : 1955 Arrival Date: 11/24/2018 Time: 23:21 Bed 18 Private MD: Diagnosis: acute mucous plug;cough;shortness of breath Presentation: 11/24 23:28 Presenting complaint: Patient states: A lot of drainage and thick secretions are coming la1 out of my trach, it gets clogged and I get SOB. Transition of care: patient was not received from another setting of care. Onset of symptoms was November 24, 2018. Risk Assessment: Do you want to hurt yourself or someone else? Patient reports no desire to harm self or others. Initial Sepsis Screen: Does the patient meet any 2 criteria? No. Patient's initial sepsis screen is negative. Does the patient have a suspected source of infection? No. Patient's initial sepsis screen is negative. Care prior to arrival: None. 23:28 Method Of Arrival: Ambulatory la1 23:28 Acuity: HERBIE 3 la1 Triage Assessment: 23:52 General: Appears in no apparent distress. uncomfortable, Behavior is cooperative. cc3 Historical: - Allergies: 23:28 No Known Allergies; la1 - PMHx: 23:28 Cancer; Laryngeal; la1 - Immunization history:: Adult Immunizations up to date. - Social history:: Smoking status: Patient/guardian denies using tobacco. - Ebola Screening: : No symptoms or risks identified at this time. - Family history:: not pertinent. - Hospitalizations: : No recent hospitalization is reported. Screenin:52 Abuse screen: Denies threats or abuse. Denies injuries from another. Nutritional cc3 screening: No deficits noted. Tuberculosis screening: No symptoms or risk factors identified. Fall Risk Ambulatory Aid- None/Bed Rest/Nurse Assist (0 pts). Gait- Normal/Bed Rest/Wheelchair (0 pts) Mental Status- Oriented to own ability (0 pts). Assessment: 23:50 Reassessment: Osman (resp therapist) at bedside trach suctioning pt and cleaning up fc trach site. 23:52 General: Appears in no apparent distress. uncomfortable, Behavior is cooperative. Pain: cc3 Denies pain. Neuro: Level of Consciousness is awake, alert, obeys commands, Oriented to person, place, time, situation, Appropriate for age. Cardiovascular: Capillary refill < 3 seconds Patient's skin is warm and dry. Rhythm is regular. Respiratory: Airway is patent Respiratory effort is even, unlabored, Respiratory pattern is regular, symmetrical. GI: Abdomen is flat. : No signs and/or symptoms were reported regarding the genitourinary system. EENT: with tracheostomy. Derm: Skin is intact, is healthy with good turgor, Skin is pink, warm \T\ dry. normal. Musculoskeletal: Circulation, motion, and sensation intact. Range of motion: intact in all extremities. 11/25 00:30 Reassessment: Patient appears in no apparent distress at this time. Patient and/or cc3 family updated on plan of care and expected duration. Pain level reassessed. Patient is alert, oriented x 3, equal unlabored respirations, skin warm/dry/pink. While RT Osman was suctioning the patient, the patient coughed out some sort of a flesh that he described as blocking his trach airway, and now he felt relieved and better, Dr. Fernando informed. Patient denies pain at this time. Patient states feeling better. Patient states symptoms have improved. 01:18 Reassessment: Patient appears in no apparent distress at this time. Patient and/or cc3 family updated on plan of care and expected duration. Pain level reassessed. Patient is alert, oriented x 3, equal unlabored respirations, skin warm/dry/pink. 02:00 Reassessment: Patient appears in no apparent distress at this time. Patient and/or cc3 family updated on plan of care and expected duration. Pain level reassessed. Patient is alert, oriented x 3, equal unlabored respirations, skin warm/dry/pink. Dr. Fernando discharged the patient home, no prescription given. IV cannula removed and patient left ER vitally stable and ambulatory with his son. No valuables left in the patient's room. Patient denies pain at this time. Patient states feeling better. Patient states symptoms have improved. Vital Signs: 11/24 23:30 BP 110 / 74; Pulse 96; Resp 18; Temp 98.6; Pulse Ox 98% on R/A; Weight 58.51 kg; la1 11/25 00:00 BP 119 / 69; Pulse 77; Resp 20 S; Pulse Ox 100% ; cc3 01:30 BP 109 / 71; Pulse 72; Resp 15 S; Pulse Ox 100% ; cc3 02:00 BP 117 / 73; Pulse 73; Resp 14 S; Pulse Ox 98% on R/A; cc3 00:00 FiO2 35% humidified oxygen on trach mask cc3 01:30 trach mask humidified oxygen FiO2 35% cc3 ED Course: 11/24 23:21 Patient arrived in ED. am2 23:28 Arm band placed on left wrist. la1 23:29 Triage completed. la1 23:36 Jordan Fernando MD is Attending Physician. wa 23:52 Antoinette Ramirez is Primary Nurse. cc3 23:52 Patient has correct armband on for positive identification. Placed in gown. Bed in low cc3 position. Call light in reach. Side rails up X 1. absorption plant operator helper on. Pulse ox on. NIBP on. 0708 00:15 Inserted saline lock: 20 gauge in right antecubital area, using aseptic technique. cc3 Blood collected. 01:40 Mayelin Swanson MD is Referral Physician. vt 01:41 Chest Single View XRAY In Process Unspecified. EDMS 02:00 No provider procedures requiring assistance completed. IV discontinued, intact, cc3 bleeding controlled, No redness/swelling at site. Pressure dressing applied. Administered Medications: 00:00 Drug: Xopenex 1.25 mg Route: Inhalation; cc3 00:20 Follow up: Response: No adverse reaction; Marked relief of symptoms cc3 Outcome: 01:41 Discharge ordered by . vt 02:00 Discharged to home ambulatory, with family. cc3 02:00 Condition: stable 02:00 Discharge instructions given to patient, family, Instructed on discharge instructions, follow up and referral plans. Demonstrated understanding of instructions, follow-up care. 02:11 Patient left the ED. cc3 Signatures: Dispatcher [employer] EDWY Clair King RN RN fc Attema, Lee, RN RN la1 Myra Chappell am2 Jordan Fernando MD MD wa Cordel, Charlene cc3
--- NOTE | 2018-11-25 09:10 | RAD REPORT ---
EXAM DESCRIPTION: RAD - Chest Single View - 11/25/2018 1:41 am CLINICAL HISTORY: Shortness of breath, mucous plugging of the trach tube COMPARISON: August 23, 2018 TECHNIQUE: AP portable chest image was obtained 0132 hours . FINDINGS: Fibrotic lung pattern is present. Interstitial markings are more prominent in the left bas e. This asymmetry is not clearly different from prior imaging. Scarring and pleural thickening change s along the lateral left chest stable as well. Trachea is midline. No failure or volume overload. Tra ch tube is in good position. Heart and vasculature are normal. No measurable pleural effusion and no pneumothorax. No acute bony abnormality seen. No acute aortic findings suspected. IMPRESSION: Chronic interstitial disease and left-sided pleural scarring stable from prior imaging. No acute chest finding seen.
--- NOTE | 2018-11-25 12:52 | EKG ---
Test Date: 2018-11-24 Test Time: 23:59:04 Referral Coordinator: ENEDELIA MEASUREMENT RESULTS: Intervals: Rate: 79 ID: [id number] QRSD: 92 QT: 358 QTc: 410 [place]: P: 76 ID: [id number] QRS: 35 T: 53 INTERPRETIVE STATEMENTS: Normal sinus rhythm Normal ECG Compared to ECG 08/19/2018 14:36:42 No significant changes Electronically Signed On 11-25-18 12:49:35 CDT by Donaldo Ferrer
== END 2018-11-25 02:11 | disposition home or self-care (01) ==
LOC: ER 23:20
DX: T17.490A Other foreign object in trachea causing asphyxiation, initial encounter (principal); R05 Cough; R06.02 Shortness of breath; C32.9 Malignant neoplasm of larynx, unspecified
CPT/HCPCS: 36415; 71045; 80048; 80076; 83690; 83735; 83880; 84484; 85025; 85610; 93005; 99285